=== PATIENT | female | born 1965 | race Caucasian/White ===

== ENCOUNTER 2017-09-21 17:40 | Inpatient (IN) | payer SELFPAY ==
[~2017-09-21] VITALS: Ht 162.6 cm; Wt 86.6 kg
[~2017-09-21 17:40] MED LIST: ATIVAN1 M1 PO; CEPHALEXIN500 MG PO; LOPRESSOR 550 MG/TAB PO; NAPROSYN500 MG OR; TYLENOL # 31 TA1 PO
--- NOTE | 2017-09-21 17:48 | NUR ---
PT TO ROOM FOR EXAM
[2017-09-21 18:41] LABS: HEMATOCRIT 43.3 % (37.0-47.0); HEMOGLOBIN 14.5 g/dl (12.0-16.0); IMMATURE GRANULOCYTES 0.9 % (0.0-1.0); MEAN CELL VOLUME 98.2 fL CALC (80.0-100.0); MEAN CORPUSCULAR HGB 32.9 pG CALC (26.0-32.0); MEAN CORPUSCULAR HGB CONC 33.5 g/L CALC (32.0-36.0); NEUT# 24.1 thou/uL (2.00-7.15); RED BLOOD COUNT 4.41 mill/uL (4.20-5.60); RED CELL DISTRI WIDTH 11.7 % (11.5-15.5)
[2017-09-21 18:48] LABS: ALBUMIN 4.4 g/dL (3.2-5.0); ALKALINE PHOSPHATASE 94 u/l (38-126); AMYLASE 41 u/l (30-110); ANION GAP 14 (6-22 (CALC)); BILIRUBIN, TOTAL 1.1 mg/dL (0.0-1.4); BUN 11 mg/dL (7-17); BUN/CREATININE RATIO 22 (12-20 (CALC)); CARBON DIOXIDE 25 mmol/l (22-30); CHLORIDE 102 mmol/l (95-108); CREATININE 0.5 mg/dL (0.5-1.0); GFR > 60 ML/MIN (>=60 (CALC)); GFR FOR AFR.AMER. > 60 ML/MIN (>=60 (CALC)); LIPASE 48 u/l (23-300); POTASSIUM 3.5 mmol/l (3.5-5.1); SGOT/AST 37 u/l (14-36); SGPT/ALT 31 u/l (9-52); SODIUM 139 mmol/l (137-146); TOTAL PROTEIN 7.3 g/dL (6.3-8.2)
--- NOTE | 2017-09-21 18:51 | NUR ---
PT PROVIDED MEDS ORDERED, APPEARS UNCOMFORTABLE WITH ABDOMINAL DISCOMFORT.
[2017-09-21 19:32] LABS: MYOGLOBIN 14 ng/mL (0 - 62)
--- NOTE | 2017-09-21 20:07 | NUR ---
RESTING QUIETLY, AWAITING LAB RESULTS.
[2017-09-21 20:14] LABS: URINE BILIRUBIN - DIPSTICK NEGATIVE (NEGATIVE); URINE BLOOD DIPSTICK NEGATIVE (NEGATIVE); URINE COLOR YELLOW; URINE GLUCOSE - DIPSTICK NEGATIVE (NEGATIVE); URINE KETONE NEGATIVE (NEGATIVE); URINE LEUK ESTERASE NEGATIVE (NEGATIVE); URINE NITRITE - DIPSTICK NEGATIVE (Negative); URINE PROTEIN - DIPSTICK NEGATIVE (NEG-TRACE); URINE UROBILINOGEN - DIPSTICK 0.2 E.U./dL (0.2)
[2017-09-21 20:16] LABS: URINE CLARITY CLEAR
--- NOTE | 2017-09-21 20:41 | NUR ---
DISCUSSED ANTIBIOTIC THERAPY INITIATED.
--- NOTE | 2017-09-21 22:03 | NUR ---
AWAITING ROOM ASSIGNMENT.
--- NOTE | 2017-09-21 22:11 | NUR ---
Admission Note Report Given to: BONNY MERAZ Transported by: Wheelchair X Stretcher Transported with: X Nurse Transporter X Patent IV O2 Byproduct Engineer
[2017-09-21 22:40] VITALS: BP 171/93
--- NOTE | 2017-09-21 23:30 | NUR ---
PATIENT ADMITTED FROM ER VIA STRETCHER WITH ER STAFF IN ATTENDANCE. PATIENT ASSISTED OFF THE STRETCHER TO THE BR TO VOID-ASSISTED TO THE BED. PATIENT ALERT AND ORIENTEDX3. PATIENT C/O LOWER ABD PAIN-WAS MEDICATED IN ER FOR PAIN. PATIENT WITH TEMP-101.7-MEDICATED WITH TYLENOL 650 MG AND RESTORIL 15MG PO WITH SIP OF H2O. PATIENT IS NPO ORDERED. IV SITE TO RIGHT AC-SITE APPEARS HEALTHY WITH GOOD BLOOD RETURN. IVF NS HUNG AND INFUSING AT 125CC/HR. ABD IS DISTENDED-STATES LAST BM WAS TODAY. DENIES DIFFICULTY WITH VOIDING. LUNGS ARE CLEAR. NO PERIPHERAL EDEMA NOTED. ORIENTED PATIENT TO ROOM AND SURROUNDINGS. INSRUCTED PATIENT ON USE OF NURSE CALL LIGHT SYSTEM AND TV REMOTE. SAFETY PRECAUTIONS REVIEWED WITH PATIENT AND PATIENT DAUGHTER. CALL LIGHT IN REACH. WILL CONT TO MONITOR.
[2017-09-22] VITALS (7 sets, daily range): BP systolic 144–164; BP diastolic 62–87
--- NOTE | 2017-09-22 01:00 | NUR ---
PATIENT UP TO THE BR TO VOID AND BACK TO BED. TEMP 100.1 AT THIS TIME. CALL LIGHT IN REACH. WILL CONT TO MONITOR.
--- NOTE | 2017-09-22 02:06 | NUR ---
PATIENT BACK UP TO THE BR TO VOID-TEMP IS 00.1 AT THIS TIME. CALL LIGHT IN REACH. WILL CONT TO MONITOR.
--- NOTE | 2017-09-22 04:55 | NUR ---
PATIENT MEDICATED FOR C/O ABD/[PELVIC PAIN WITH MORPHINE 4MG IVP ORDERED FOR PAIN-9/10 ON PAIN SCALE. CALL LIGHT IN REACH. WILL CONT TO MONITOR.
--- NOTE | 2017-09-22 06:19 | NUR ---
APPEARS SLEEPING POSITIONED ON LEFT SIDE AT THIS TIME. VIF PATENT AND INFUSING AT 125CC/HR. VOIDING GIANA URINE IN BR. CALL LIGHT IN REACH. WILL CONT TO MONITOR.
--- NOTE | 2017-09-22 07:00 | NUR ---
SHIFT CHANGE REPORT FROM LINDA MERAZ AWAKE RESTING IN BED, C/O ABD PAIN, IVF INFUSING. PAIN CONCERNS ADDRESSED, CALL BERKOWITZ IN REACH.
--- NOTE | 2017-09-22 07:20 | NUR ---
RECIEVED REPORT FROM MARIYA DRAPER. PT. IS LAYING IN BED, EASILY AROUSED. PT COMPLAINS OF PAIN IN HER ABDOMEN, 10/10, STABBING. NURSE NOTIFIED. PT WAS MEDICATED PER ORDER FOR FEVER BY Ramon OLIVO RN. SAFETY PRECAUTIONS REINFORCED, CALL LIGHT WITHIN REACH. WILL CONTINUE TO MONITOR.
--- NOTE | 2017-09-22 07:21 | NUR ---
ADMINISTERED PO TYLENOL WITH SMALL SIP OF WATER FOR TEMP 101.4. BLANKETS REMOVED AND PT AWARE OF FEVER.
--- NOTE | 2017-09-22 07:50 | NUR ---
PATIENT IS SITTING UP IN BED AWAKE. PATIENT IS ALERT AND ORIENTED X3. PUPILS ARE BRISK, 3MM. PERRLA. FACE IS SYMMETRIC. LUNGS ARE CLEAR BILATERALLY. ABDOMEN IS DISTENDED AND FIRM. ACTIVE BOWEL SOUNDS IN ALL FOUR QUADRANTS. PT COMPLAINS OF PAIN IN HER RLQ AND LLQ. LOWER QUADRANTS ARE TENDER TO TOUCH. PT STATES PAIN IS A 10/10 PAIN THAT IS A STABBING PAIN THAT COMES AND GOES. PT STATES THAT SHE HAS NO NAUSEA OR VOMITTING. PULSES ARE STRONG THROUGHOUT. CAP REFILL <3. NO PERIPHERAL EDEMA NOTED. PT IS NPO, PT VERBALIZES UNDERSTANDING THAT SHE CANT HAVE ANYTHING TO EAT OR DRINK. CALL LIGHT WITHIN REACH. WILL CONTINUE TO MONITOR.
[2017-09-22 07:55] LABS: ANION GAP 14 (6-22 (CALC)); BUN 11 mg/dL (7-17); BUN/CREATININE RATIO 22 (12-20 (CALC)); CARBON DIOXIDE 22 mmol/l (22-30); CHLORIDE 109 mmol/l (95-108); CREATININE 0.5 mg/dL (0.5-1.0); GFR > 60 ML/MIN (>=60 (CALC)); GFR FOR AFR.AMER. > 60 ML/MIN (>=60 (CALC)); HEMATOCRIT 40.6 % (37.0-47.0); HEMOGLOBIN 13.5 g/dl (12.0-16.0); MEAN CELL VOLUME 100.7 fL CALC (80.0-100.0); MEAN CORPUSCULAR HGB 33.5 pG CALC (26.0-32.0); MEAN CORPUSCULAR HGB CONC 33.3 g/L CALC (32.0-36.0); POTASSIUM 4.1 mmol/l (3.5-5.1); RED BLOOD COUNT 4.03 mill/uL (4.20-5.60); SODIUM 141 mmol/l (137-146)
--- NOTE | 2017-09-22 12:15 | NUR ---
ATE FULL LIQUID MEAL AND TOLERATED, WILL CONTINUE TO MONITOR.
--- NOTE | 2017-09-22 16:39 | NUR ---
SITTING UP IN CHAIR AT THIS TIME, TEMP BACK WITHIN NORMAL RANGE AFTER TYLENOL GIVEN, ALL OTHER NEEDS ADDRESSED, CALL BERKOWITZ IN REACH.
--- NOTE | 2017-09-22 19:00 | NUR ---
RECEIVED CHANGE OF SHIFT REPORT FROM BONNY MCMANUS. PATIENT UP AT BEDSIDE, NO APPARENT ACUTE DISTRESS OR DISCOMFORT NOTED AT THIS TIME. WILL CONTUNE TO MONITOR.
--- NOTE | 2017-09-23 00:02 | NUR ---
PATIENT'S AWAKE AND LYING IN BED. REPORTS UNRELIEVED PAIN TO ABDOMEN. MEDICATED WITH MORPHINE 4 MG IV PUSH. WILL CONTINUE TO MONITOR,
[2017-09-23 04:00] VITALS: BP 160/75
--- NOTE | 2017-09-23 04:00 | NUR ---
PATIENT RESTING QUIETLY AT THIS TIME. NO APPARENT ACUTE CHANGES NOTED IN PATIENT'S CONDITION.
[2017-09-23 06:09] LABS: HEMATOCRIT 37.9 % (37.0-47.0); HEMOGLOBIN 12.4 g/dl (12.0-16.0); MEAN CELL VOLUME 101.1 fL CALC (80.0-100.0); MEAN CORPUSCULAR HGB 33.1 pG CALC (26.0-32.0); MEAN CORPUSCULAR HGB CONC 32.7 g/L CALC (32.0-36.0); RED BLOOD COUNT 3.75 mill/uL (4.20-5.60); RED CELL DISTRI WIDTH 11.9 % (11.5-15.5)
[2017-09-23 06:12] LABS: ANION GAP 15 (6-22 (CALC)); BUN 7 mg/dL (7-17); BUN/CREATININE RATIO 14 (12-20 (CALC)); CARBON DIOXIDE 23 mmol/l (22-30); CHLORIDE 106 mmol/l (95-108); CREATININE 0.5 mg/dL (0.5-1.0); GFR > 60 ML/MIN (>=60 (CALC)); GFR FOR AFR.AMER. > 60 ML/MIN (>=60 (CALC)); MAGNESIUM 1.8 mg/dL (1.6-2.3); POTASSIUM 3.2 mmol/l (3.5-5.1); SODIUM 141 mmol/l (137-146)
--- NOTE | 2017-09-23 07:24 | NUR ---
SHFIT CHANGE REPORT FROM LAYLA, PT SLEEPING, BREATHING EVEN AND NON LABBORED, IVF INFUSING, NO SIGN DISCOMFORT, CALL BERKOWITZ IN REACH.
--- NOTE | 2017-09-23 07:48 | NUR ---
AWAKENED FOR MEAL, ORIENTED, C/O ABD PAIN, WILL CONTINUE TO MONITOR.
[2017-09-23 08:21] VITALS: BP 168/91
[2017-09-23 12:07] VITALS: BP 172/87
[2017-09-23 15:51] VITALS: BP 166/81
--- NOTE | 2017-09-23 16:31 | NUR ---
RESTING IN BED AT THIS TIME, ALL NEEDS ADDRESSED, SPOUSE VISITING, CALL BERKOWITZ IN REACH.
--- NOTE | 2017-09-23 19:00 | NUR ---
RECEIVED CHANGE OF SHIFT REPORT FROM BONNY MCMANUS. PATIENT LYING IN BED AND APPEARS NOT TO BE IN ANY APPARENT ACUTE DISTRESS AT THIS TIME. WILL CONTINUE TO MONITOR.
[2017-09-23 19:15] VITALS: BP 159/98
--- NOTE | 2017-09-24 | NUR ---
PATIENT RESTING IN BED QUIETLY AND APPEARS NOT TO BE IN ANY APPARENT ACUTE DISTRESS. RESP EVEN AND NONLABORED. WILL CONTINUE TO MONITOR.
--- NOTE | 2017-09-24 04:00 | NUR ---
PATIENT LYING IN BED ASLEEP. NO APPATENT ACUTE CHANGES NOTED IN PATIENT'S CONDITION,
[2017-09-24 04:31] VITALS: BP 143/89
[2017-09-24 05:52] LABS: HEMATOCRIT 36.8 % (37.0-47.0); MEAN CELL VOLUME 101.4 fL CALC (80.0-100.0); MEAN CORPUSCULAR HGB 33.1 pG CALC (26.0-32.0); MEAN CORPUSCULAR HGB CONC 32.6 g/L CALC (32.0-36.0); RED BLOOD COUNT 3.63 mill/uL (4.20-5.60); RED CELL DISTRI WIDTH 11.8 % (11.5-15.5)
[2017-09-24 06:07] LABS: ANION GAP 13 (6-22 (CALC)); BUN 4 mg/dL (7-17); BUN/CREATININE RATIO 8 (12-20 (CALC)); CARBON DIOXIDE 26 mmol/l (22-30); CHLORIDE 105 mmol/l (95-108); CREATININE 0.5 mg/dL (0.5-1.0); GFR > 60 ML/MIN (>=60 (CALC)); GFR FOR AFR.AMER. > 60 ML/MIN (>=60 (CALC)); MAGNESIUM 1.7 mg/dL (1.6-2.3); POTASSIUM 3.4 mmol/l (3.5-5.1); SODIUM 141 mmol/l (137-146)
--- NOTE | 2017-09-24 07:00 | NUR ---
RECEIVED BEDSIDE REPORT FROM LAYLA DRAPER. RESTING IN SUPINE POSITION WITH EYES CLOSED, AWAKENS EASILY. RESPS EVEN AND UNLABORED ON ROOM AIR. #22 LFA INFUSING WITHOUT DIFFICULTY, SITE APPEARS HEALTHY. DENIES PAIN OR DISCOMFORT. PLAN OF CARE DISCUSSED. SAFETY PRECAUTIONS REINFORCED. BED IN LOWEST POSITION WITH WHEELS LOCKED. CALL LIGHT WITHIN REACH. ENCOURAGED PT TO CALL FOR ANY NEEDS.
[2017-09-24 08:14] VITALS: BP 175/86
--- NOTE | 2017-09-24 12:00 | NUR ---
SITTING IN BEDSIDE CHAIR EATING LUNCH. DENIES PAIN OR DISCOMFORT. CALL LIGHT WITHIN REACH. WILL CONTINUE TO MONITOR.
--- NOTE | 2017-09-24 14:30 | NUR ---
SITTING IN BEDSIDE CHAIR, AT BEDSIDE. RESPS EVEN AND UNLABORED ON ROOM AIR. #22 RFA INFUSING WITHOUT DIFFICULTY, SITE APPEARS HEALTHY. MEDICATED WITH LORTAB PO FOR C/O 5/10 ABD PAIN. CALL LIGHT WITHIN REACH. WILL CONTINUE TO MONITOR.
[2017-09-24] MEDS ORDERED: CIPROFLOXACN500 MG PO (15:16)
[2017-09-24] MEDS ORDERED: METRONIDAZOL500 MG PO (15:16)
[2017-09-24] MEDS ORDERED: TRAMADOL HCL50 MG PO (15:16)
[2017-09-24] MEDS ORDERED: AMLODIPINE BESYL5 MG PO (15:20)
[2017-09-24] MEDS ORDERED: LORTAB 5/3255 MG PO (15:35)
--- NOTE | 2017-09-24 16:00 | NUR ---
IV site discontinued, cath intact. No edema , no redness, voices no discomfort.
--- NOTE | 2017-09-24 16:10 | NUR ---
Discharge instructions given. Patient verbalizes understanding of same. Discharged in stable condition via Wheelchair to Home with spouse. All belongings sent with pt.
== END 2017-09-24 16:07 | disposition home or self-care (01) | DRG 872 ==
LOC: ED 17:40 → ED-I 21:20 → ED 21:47 → MS2 21:48
PROVIDERS: Emergency Medicine; Internal Medicine; Nurse Practitioner Family; ADMIT Internal Medicine; ATTEND Internal Medicine
DX: A41.9 Sepsis, unspecified organism (principal); K57.32 Diverticulitis of large intestine without perforation or abscess without bleeding; I16.0 Hypertensive urgency; I10 Essential (primary) hypertension; E86.0 Dehydration; E87.6 Hypokalemia; F17.210 Nicotine dependence, cigarettes, uncomplicated; Z72.89 Other problems related to lifestyle; Z91.19 Patient's noncompliance with other medical treatment and regimen
CPT/HCPCS: Q9967

== ENCOUNTER 2019-05-30 14:26 | Emergency (ER) | payer SELFPAY ==
[~2019-05-30] VITALS: Ht 162.6 cm; Wt 87.2 kg
[~2019-05-30 14:26] MED LIST changes: +AMLODIPINE BESYL5 MG PO; +CIPROFLOXACN500 MG PO; +LORTAB 5/3255 MG PO; +METRONIDAZOL500 MG PO; +TRAMADOL HCL50 MG PO
[2019-05-30 16:46] LABS: IMMATURE GRANULOCYTES 0.5 % (0.0-5.0); MEAN CELL VOLUME 97.5 fL CALC (80.0-100.0); MEAN CORPUSCULAR HGB 31.5 pG CALC (26.0-32.0); MEAN CORPUSCULAR HGB CONC 32.4 g/L CALC (32.0-36.0); NEUT# 6.93 thou/uL (2.00-7.15); RED BLOOD COUNT 5.96 mill/uL (4.20-5.60); RED CELL DISTRI WIDTH 13.7 % (11.5-15.5)
[2019-05-30 16:52] LABS: URINE BLOOD DIPSTICK MODERATE (NEGATIVE); URINE GLUCOSE - DIPSTICK NEGATIVE (NEGATIVE); URINE KETONE NEGATIVE (NEGATIVE); URINE LEUK ESTERASE NEGATIVE (NEGATIVE); URINE NITRITE - DIPSTICK NEGATIVE (Negative); URINE PROTEIN - DIPSTICK >=300 mg/dL (NEG-TRACE); URINE SPECIFIC GRAVITY >=1.030
[2019-05-30 16:54] LABS: URINE BILIRUBIN - DIPSTICK NEGATIVE (NEGATIVE); URINE COLOR DK. YELLOW
[2019-05-30 16:59] LABS: INTERNATIONAL NORMALIZED RATIO 1.1 RATIO (0.7-1.3); PROTHROMBIN TIME 11.3 SECONDS (9.0-12.5)
[2019-05-30 17:05] LABS: URINE SQUAMOUS EPITHELIAL CELL FEW EPI/hpf (0-FEW)
[2019-05-30 17:07] LABS: HEMATOCRIT 58.1 % (37.0-47.0); HEMOGLOBIN 18.8 g/dl (12.0-16.0)
[2019-05-30 17:12] LABS: ALBUMIN 3.7 g/dL (3.2-5.0); ALKALINE PHOSPHATASE 125 u/l (38-126); ANION GAP 12 (6-22 (CALC)); BILIRUBIN, TOTAL 1.6 mg/dL (0.0-1.4); BUN 12 mg/dL (7-17); BUN/CREATININE RATIO 24 (12-20 (CALC)); CARBON DIOXIDE 31 mmol/l (22-30); CHLORIDE 100 mmol/l (95-108); CPK 31 u/l (30-165); CREATININE 0.5 mg/dL (0.5-1.0); ETHYL ALCOHOL 0 mg/dl (0-30); GFR > 60 ML/MIN (>=60 (CALC)); GFR FOR AFR.AMER. > 60 ML/MIN (>=60 (CALC)); MAGNESIUM 1.6 mg/dL (1.6-2.3); POTASSIUM 4.7 mmol/l (3.5-5.1); SGOT/AST 37 u/l (14-36); SODIUM 138 mmol/l (137-146); TOTAL PROTEIN 7.1 g/dL (6.3-8.2)
[2019-05-30 17:34] LABS: TSH, 3RD GENERATION 3.03 uIU/mL (0.47 - 4.68)
[2019-05-30] MEDS ORDERED: MAXZIDE-25MG1 COMBO PO (19:12)
[2019-05-30 19:44] VITALS: BP 160/99
== END 2019-05-30 19:50 | disposition home or self-care (01) | DRG 434 ==
LOC: ED 14:26
PROVIDERS: Family Medicine
DX: K70.9 Alcoholic liver disease, unspecified (principal); R60.0 Localized edema; E11.9 Type 2 diabetes mellitus without complications; I10 Essential (primary) hypertension; F17.290 Nicotine dependence, other tobacco product, uncomplicated
CPT/HCPCS: Q9967

== ENCOUNTER 2019-10-13 | Inpatient (IN) | payer SELFPAY ==
--- NOTE | 2019-10-12 15:45 | NUR ---
PT RETURNED TO WAITING ROOM VIA WC- AWAITING FOR ROOM AVAILIABILITY
--- NOTE | 2019-10-12 16:58 | NUR ---
PT BROUGHT BACK TO ROOM VIA WC
--- NOTE | 2019-10-12 17:45 | NUR ---
PATIENT REPORTS PAIN TO IV SITE TO LAC REQUESTING TO BE CHANGED TO RAC. #18 TO RAC ESTABLISHED BLOOD WORK COLLECTED.
[2019-10-12 17:57] LABS: HEMATOCRIT 37.2 % (37.0-47.0); HEMOGLOBIN 12.6 g/dl (12.0-16.0); IMMATURE GRANULOCYTES 1.1 % (0.0-5.0); MEAN CELL VOLUME 92.1 fL CALC (80.0-100.0); MEAN CORPUSCULAR HGB 31.2 pG CALC (26.0-32.0); MEAN CORPUSCULAR HGB CONC 33.9 g/L CALC (32.0-36.0); NEUT# 18.19 thou/uL (2.00-7.15); RED BLOOD COUNT 4.04 mill/uL (4.20-5.60); RED CELL DISTRI WIDTH 14.1 % (11.5-15.5)
[2019-10-12 18:03] LABS: URINE BILIRUBIN - DIPSTICK NEGATIVE (NEGATIVE); URINE BLOOD DIPSTICK TRACE-INTACT (NEGATIVE); URINE COLOR YELLOW; URINE GLUCOSE - DIPSTICK NEGATIVE (NEGATIVE); URINE KETONE NEGATIVE (NEGATIVE); URINE LEUK ESTERASE NEGATIVE (NEGATIVE); URINE NITRITE - DIPSTICK NEGATIVE (Negative); URINE PROTEIN - DIPSTICK TRACE mg/dL (NEG-TRACE); URINE UROBILINOGEN - DIPSTICK 0.2 E.U./dL (0.2)
[2019-10-12 18:12] LABS: BILIRUBIN, TOTAL 1.5 mg/dL (0.0-1.4); BUN 41 mg/dL (7-17); BUN/CREATININE RATIO 50 (12-20 (CALC)); CARBON DIOXIDE 30 mmol/l (22-30); CHLORIDE 93 mmol/l (95-108); CREATININE 0.8 mg/dL (0.5-1.0); GFR > 60 ML/MIN (>=60 (CALC)); GFR FOR AFR.AMER. > 60 ML/MIN (>=60 (CALC)); LIPASE 49 u/l (23-300); SGOT/AST 40 u/l (14-36); SODIUM 134 mmol/l (137-146)
[2019-10-12 18:14] LABS: ALBUMIN 2.8 g/dL (3.2-5.0); ALKALINE PHOSPHATASE 265 u/l (38-126); AMYLASE < 30 u/l (30-110); ANION GAP 14 (6-22 (CALC)); POTASSIUM 2.9 mmol/l (3.5-5.1)
--- NOTE | 2019-10-12 18:35 | NUR ---
PATIENT MEDICATED PER MD ORDER. REPORTS PAIN 03/18 AT THIS TIME. BUYER INTERNSHIP AT BEDSIDE TO TRANSPORT PATIENT TO CT.
--- NOTE | 2019-10-12 19:00 | NUR ---
REPORT GIVEN TO BONNY RENNER. PATIENT CONTINUES IN CT SCAN.
--- NOTE | 2019-10-12 19:12 | NUR ---
RETURNED FROM RADIOLOGY VIA STRETCHER
--- NOTE | 2019-10-12 19:37 | NUR ---
PT UP TO BR VIA W/C.
--- NOTE | 2019-10-12 20:24 | NUR ---
C/O BEING COLD. IVF CONTINUED. VSS. PT GIVEN ANOTHER BLANKET. DOESN'T WANT TO LAY IN BED. SITTING UP IN ROLLING CHAIR. ADVISED OF WAIT
--- NOTE | 2019-10-12 21:56 | NUR ---
AT BEDSIDE TO DISCUSS RESULTS
--- NOTE | 2019-10-12 22:06 | NUR ---
DR NOTIFIED OF LACTIC ACID OF 2.1
--- NOTE | 2019-10-12 22:50 | NUR ---
PT UP TO BR VIA W/C. UPON RETURNING TO ROOM, PT C/O DIZZINESS AND INCREASED ABD PAIN. NOTIFIED.
--- NOTE | 2019-10-12 23:18 | NUR ---
PT GIVEN MORPHINE AND PLACED ON NC @ 2 LPM PT WAS SATING AT 90 % PRIOR TO GETTING MORPHINE. PT DOESN'T LIKE IT IN HER NOSE SO o2 INFUSING INTO MOUTH.
--- NOTE | 2019-10-12 23:20 | NUR ---
WHILE GIVING MORPHINE....PT STATES THAT SHE WAS HAVING CHEST PAIN. 12/16. DENIES HEART HX. MOTHER HAD A WEAK HEART.
--- NOTE | 2019-10-12 23:26 | NUR ---
EKG IN PROGRESS. AT BEDSIDE TO DISCUSS CHEST PAIN. MP ESPARZA.
--- NOTE | 2019-10-12 23:31 | NUR ---
LAB AT BEDSIDE TO DRAW REPEAT LACTIC AND A TROPONIN.
--- NOTE | 2019-10-12 23:50 | NUR ---
ADVISED DR. BOURNE THAT PT HAS A BP OF 109/54...PRIOR TO NITRO PASTE. STATES TO GIVE A FLUID BOLUS AND THEN GIVE NITRO. JORDIN PABON.
[2019-10-13] VITALS (8 sets, daily range): BP systolic 88–152; BP diastolic 42–58
[~2019-10-13] MED LIST changes: +MAXZIDE-25MG1 COMBO PO
--- NOTE | 2019-10-13 00:07 | NUR ---
PT STATES PAIN IS A 7/10.
--- NOTE | 2019-10-13 00:39 | NUR ---
REPORT TO BONNY BRENNER. PT WAS JUST UP TO BR TO VOID VIA W/C. TO FLOOR WITH FLUIDS INFUSING VIA W/C WITH JORDIN WHO WILL CARE FOR HER UPSTAIRS. REPORT GIVEN TO NURSE AT BEDSIDE.
--- NOTE | 2019-10-13 00:45 | NUR ---
PT TRANSFERED TO [facility] VIA WHEELCHAIR. PT ALERT AND ORIENTED. NO APPARENT DISTRESS NOTED. PT DENIES ANY PAIN OR DISCOMFORT AT THIS TIME. PT AMBULATED X1 ASSIST FROM WHEELCHAIR TO BED. PT ORIENTED TO ROOM AND CALL LIGHT SYSTEM. POC DISCUSSED. PT VERBALIZED UNDERSTANDING. HOME MEDS OBTAINED AND PLACE IN MED ROOM FOR PHARMACY TO ERECTOR OPERATOR. PT AWARE OF NPO STATUS. CALL LIGHT WITHIN REACH. WILL CONTINUE TO MONITOR.
--- NOTE | 2019-10-13 04:22 | NUR ---
ASSISTED PT TO BATHROOM. PT AMBULATED WITH STEADY GAIT. NO APPARENT DISTRESS NOTED. ASSISTED PT BACK TO BED. LINENS ADJUSTED UPON REQUEST. PT REMAINS NPO. CALL LIGHT WITHIN REACH. WILL CONTINUE TO MONITOR.
[2019-10-13 05:47] LABS: HEMATOCRIT 35.1 % (37.0-47.0); HEMOGLOBIN 11.6 g/dl (12.0-16.0); IMMATURE GRANULOCYTES 1.2 % (0.0-5.0); MEAN CELL VOLUME 95.6 fL CALC (80.0-100.0); MEAN CORPUSCULAR HGB 31.6 pG CALC (26.0-32.0); NEUT# 16.05 thou/uL (2.00-7.15); RED BLOOD COUNT 3.67 mill/uL (4.20-5.60); RED CELL DISTRI WIDTH 14.5 % (11.5-15.5)
--- NOTE | 2019-10-13 06:18 | NUR ---
PT C/O SHARP ABD PAIN 05/18. ER PHYSICIAN NOTIFIED AND INFORMED OF CURRENT BP 115/55. NITROPASTE HELD AND ORDERS RECEIEVED FOR MORPHINE 2MG IV X1 DOSE FOR PAIN. WILL MEDICATED WHEN PROFILED BY PHARMACY.
--- NOTE | 2019-10-13 07:30 | NUR ---
REPORT RECEIVED FROM SARAI BRENNER. PT SITTING UPRIGHT IN BED. DENIES PAIN. TENDERNESS TO LLQ ABDOMEN NOTED. PT REQUESTS SOMETHING TO DRINK. NPO STATUS REINFORCED. PLAN OF CARE AND SURGERY CONSULT REVIEWED. EXPIRATORY WHEEZING HEARD IN LEFT LUNG PUENTE. NO COUGH/SOB. PT REPORTS HX SMOKING CIGARS. REPORTING OF CONCERNS OR CHANGE IN CONDITION ENCOURAGED. CALL LIGHT REVIEWED AND IN REACH. PT STATES UNDERSTANDING.
--- NOTE | 2019-10-13 08:25 | NUR ---
CALLED IN CONSULTATION REGARDING THIS PT TO DR. EMERY OFFICE. SPOKE TO OANH GAVE HER INFORMATION REGARDING PT. STATED SHE WILL PASS ALONG THE MESSAGE TO DR. EMERY.
--- NOTE | 2019-10-13 09:23 | NUR ---
BP 88/42, HR 95. PT REPORTS DIZZINESS. ALERT AND ORIENTED, BUT INAPPROPRAITE AT TIMES. DR. LONG NOTIFIED. ORDERS GIVEN FOR STAT LACTIC ACID, NS 1 L IV BOLUS NOW, AND CONFIRM SURGERY CONSULT WAS CALLED. DR. EMERY NOTIFIED PER ELBERT HIGH. NS BOLUS STARTED AT THIS TIME. WILL CONTINUE TO MONITOR BP CLOSELY. FALL PRECAUTIONS REINFORCED WITH PT.
--- NOTE | 2019-10-13 10:26 | NUR ---
SIGNIFICANT OTHER AT BEDSIDE, REPORTS PT'S DEMEANOR IS NORMAL FOR HER. BP NOW 96/50, HR 91. NS BOLUS STILL INFUSING.
--- NOTE | 2019-10-13 12:00 | NUR ---
DR. EMERY IN TO SEE PT. ORDER FOR CLEAR LIQUID DIET GIVEN.
--- NOTE | 2019-10-13 13:00 | NUR ---
DR. LONG IN TO SEE PT. PLAN OF CARE UPDATED.
--- NOTE | 2019-10-13 15:40 | NUR ---
Reviewed medication list with patient. Counseled patient on importance of medication adherence. Questions and concerns patient had were addressed.
--- NOTE | 2019-10-13 18:00 | NUR ---
PT SCREMAING OUT IN PAIN. DILAUDID IV ADMINISTERED PER ORDER. BED ALARM SET FOR SAFETY.
--- NOTE | 2019-10-13 19:25 | NUR ---
ASSESSMENT COMPLETED. IV SITE PATENT AND ORDERED IVF INFUSING WELL. IS AT BEDSIDE. PT. IS DROWSY. BED ALARM IS ON FOR SAFETY. ENCOURAGED TO CALL FOR ANY NEEDS. CALL LIGHT IS IN REACH. WILL CONTINUE TO MONITOR.
--- NOTE | 2019-10-13 22:15 | NUR ---
PT. RESTING IN BED AND REQUESTS ICE CHIPS AND GIVEN AT THIS TIME. DENIES FURTHER NEEDS. BED ALARM ON.
--- NOTE | 2019-10-14 00:28 | NUR ---
PT. ASSSITED TO AND FROM THE BATHROOM AND VOIDED. BED ALARM RE-SET. PT. INTERMITTENTLY BENDING ARM AND IV SITE IN AC AND SOUNDING IV PUMP; THIS ARCHEOLOGY PROFESSOR OFFERED TO RESTART IV SITE AND PT. DECLINES. PT. REPORTS ABD PAIN 10/10 AND MEDICATED WITH ORDERED IV DILAUDID PER EMAR. WILL REASSESS. DENIES FURTHER NEEDS. PT. HAS BEEN TOLERATED LIQUIDS WELL WITH NO VOMITING. CALL LIGHT IS IN REACH.
--- NOTE | 2019-10-14 02:48 | NUR ---
RESTING IN BED ON LEFT SIDE WITH EYES CLOSED; RESP. EVEN AND UNLABORED. CALL LIGHT IS IN REACH.
--- NOTE | 2019-10-14 04:30 | NUR ---
PT. REPORTING IV SITE IS HURTING, NO REDNESS OR SWELLING NOTED TO SITE, REMOVED AT THIS TIME AND CATHETER INTACT. NEW IV STARTED TO RIGHT WRIST X1 ATTEMPT; PT. TOLERATED WELL AND IV DILAUDID ADMINISTERED FOR ABD PAIN; WILL REASSESS. ENCOURAGED TO CALL FOR ANY NEEDS. CALL LIGHT IS IN REACH.
[2019-10-14 04:54] VITALS: BP 154/57
--- NOTE | 2019-10-14 05:25 | NUR ---
PT. ASSISTED TO AND FROM BATHROOM. SCHED ANTIBIOTIC HUNG. ENCOURAGED TO CALL FOR ANY NEEDS.
[2019-10-14 05:59] LABS: HEMOGLOBIN 9.7 g/dl (12.0-16.0); MEAN CORPUSCULAR HGB CONC 33.3 g/L CALC (32.0-36.0); RED BLOOD COUNT 3.03 mill/uL (4.20-5.60); RED CELL DISTRI WIDTH 14.5 % (11.5-15.5)
[2019-10-14 06:06] LABS: HEMATOCRIT 29.1 % (37.0-47.0)
[2019-10-14 06:07] LABS: ALBUMIN 2.3 g/dL (3.2-5.0); ALKALINE PHOSPHATASE 188 u/l (38-126); ANION GAP 9 (6-22 (CALC)); BUN 15 mg/dL (7-17); BUN/CREATININE RATIO 25 (12-20 (CALC)); CARBON DIOXIDE 29 mmol/l (22-30); CHLORIDE 102 mmol/l (95-108); CREATININE 0.6 mg/dL (0.5-1.0); GFR > 60 ML/MIN (>=60 (CALC)); GFR FOR AFR.AMER. > 60 ML/MIN (>=60 (CALC)); MAGNESIUM 1.4 mg/dL (1.6-2.3); POTASSIUM 3.1 mmol/l (3.5-5.1); SGOT/AST 27 u/l (14-36); SODIUM 136 mmol/l (137-146); TOTAL PROTEIN 5.1 g/dL (6.3-8.2)
[2019-10-14 06:17] LABS: BILIRUBIN, TOTAL 2.4 mg/dL (0.0-1.4)
[2019-10-14 07:50] VITALS: BP 114/62
--- NOTE | 2019-10-14 07:50 | NUR ---
PT SITTING IN BED. A&O. NO DISTRESS NOTED. PT C/O OF MILD ABD PAIN. NO NEEDS AT THIS TIME. NON PRODUCTIVE COUGH NOTED. ASSESSMENT COMPLETED. CALL LIGHT IN REACH. CONTINUE TO MONITOR.
--- NOTE | 2019-10-14 08:01 | NUR ---
PRELIMINARY BLOOD CULTURE RESULTS CALLED TO AT 0745. 3/4 VIALS GROWING GRAM (+) COCCI. NEW ORDERS FOR [facility] TO DOSE READ BACK AND VERIFIED. PHARMACY TO FOLLOW FOR FINAL SENSITIVITIES.
[2019-10-14 11:00] VITALS: BP 119/52
--- NOTE | 2019-10-14 13:53 | NUR ---
S: ALFREDO BOWMAN is a 54 F who presents with BLOOD CULTURE GROWING GRAM (+) COCCI IN 3/4 VIALS. She has a history of Acute diverticulitis. All medications in patient's chart were reviewed. O: VS: BP 119/52, P 87, RR14,T 98.3 W 75kg>, HT 64 IN, Scr= 0.6,CrCl= >100 ml/min> A: Blood culture <is pending/show> which is sensitive to <>. Urine culture <is pending/show> which is sensitive to <>. P: Patient is on . Vancomycin ordered for pharmacy to dose.ZOSYN AND VANCOMYCIN Start Vancomycin 1250MG IV Q12H. Vancomycin trough is drawn before the 4th dose 10/15/19 @2000 Vancomycin goal trough is between <15-20 mcg/ml>. Pharmacy will follow and or advise on antibiotics use as needed.
[2019-10-14 15:10] VITALS: BP 116/57
--- NOTE | 2019-10-14 15:38 | NUR ---
PER ED PT EXHIBITED SIGNS OF VTACH ON TELEMETRY MONITORING. JACKY CRANBERRY GROWER NOTIFIED, PER JACKY EKG AND STAT TROPONIN TO BE OBTAINED.
[2019-10-14 19:20] VITALS: BP 125/53
--- NOTE | 2019-10-14 19:51 | NUR ---
ASSESSMENT COMPLETED. DENIES NEEDS/PAIN. UPDATED ON POC AND VERBALIZES UNDERSTANDING; AMBULATED WITH STBY ASST. TO THE BATHROOM AND BACK INTO BED. ENCOURAGED TO CALL FOR ANY NEEDS. CALL LIGHT IS IN REACH.
--- NOTE | 2019-10-14 23:49 | NUR ---
PT. C/O ABD PAIN 02/15 AND ASSISTED INTO BATHROOM AND BACK INTO BED. MEDICATED WITH ORDERED PRN LORTAB; WILL REASSESS.
[2019-10-15 00:23] VITALS: BP 136/60
--- NOTE | 2019-10-15 03:02 | NUR ---
RESTING IN BED ON LEFT SIDE WITH EYES CLOSED. RESP. EVEN AND UNLABORED. CALL LIGHT IS IN REACH.
[2019-10-15 04:37] VITALS: BP 126/55
--- NOTE | 2019-10-15 05:43 | NUR ---
PT. RESTING IN BED WITH NO DISTRESS NOTED; DENIES NEEDS. CALL LIGHT IS IN REACH.
[2019-10-15 07:24] VITALS: BP 104/61
--- NOTE | 2019-10-15 07:24 | NUR ---
PT LAYING IN BED. A&O. NO DISTRESS NOTED. PER PT LORTAB HAS BEEN EFFECTIVE IN CONTROLLING HER PAIN. PER PT SHE HAD A LARGE(NORMAL) BM THIS MORNING. NO OTHER NEEDS OR CONCERNS AT THIS TIME. ASSESSMENT COMPLETED. DISCUSSED POC. CALL LIGHT IN REACH. CONTINUE TO MONITOR.
[2019-10-15 12:08] VITALS: BP 131/64
--- NOTE | 2019-10-15 14:03 | NUR ---
ORAL IV CONTRAST DOSE #1 GIVEN. PT TOLERATED WELL
--- NOTE | 2019-10-15 17:08 | NUR ---
PT TAKEN TO CT VIA WC ACCOMPANIED BY TAZ BOSWELL.
--- NOTE | 2019-10-15 17:24 | NUR ---
PT ARRIVED BACK TO [place] VIA WC ACCOMPANIED BY TAZ BOSWELL.
--- NOTE | 2019-10-15 17:49 | NUR ---
EXPLAINED TO PT THAT AFTER MIDNIGHT SHE WAS TO BE NPO. PT VERBALIZED UNDERSTANDING
--- NOTE | 2019-10-15 19:12 | NUR ---
PT. SITTING UP IN BED AND EDUCATED ON POC AND PAIN MEDICATION FREQUENCIES AND PRN STATUS AND PT. NEEDING TO ASK FOR PAIN MEDICATION IF SHE NEEDS IT IT IS NOT SCHEDULED; VERBALIZES UNDERSTANDING. REPORTING ABD PAIN 10/10 AND MEDICATED WITH ORDERED PRN LORTAB, WILL REASSESS. ENCOURAGED AMBULATION TO ASSIST WITH GAS. CALL LIGHT IS IN REACH. WILL CONTINUE TO MONITOR.
[2019-10-15 19:33] VITALS: BP 156/67
--- NOTE | 2019-10-15 23:35 | NUR ---
PT. SITTING UP TALKING TO ON THE PHONE, NO DISTRESS NOTED; DENIES NEEDS. BROTH PROVIDED PT. WILL BE NPO AFTER MIDNIGHT AND RE-EDUCATED ABOUT THIS; VERBALIZES UNDERSTANDING.
[2019-10-16] VITALS (8 sets, daily range): BP systolic 119–168; BP diastolic 58–86
--- NOTE | 2019-10-16 01:05 | NUR ---
PT. C/O ABD PAIN 03/18 AND MEDICATED WITH ORDERED LORTAB WITH A SIP OF WATER; WILL REASSESS.
--- NOTE | 2019-10-16 04:06 | NUR ---
RESTING IN BED WITH NO DISTRESS NOTED;DENIES NEEDS. CALL LIGHT IS IN REACH.
[2019-10-16 05:12] LABS: HEMATOCRIT 31.7 % (37.0-47.0); HEMOGLOBIN 9.9 g/dl (12.0-16.0); MEAN CELL VOLUME 101.3 fL CALC (80.0-100.0); MEAN CORPUSCULAR HGB 31.6 pG CALC (26.0-32.0); MEAN CORPUSCULAR HGB CONC 31.2 g/L CALC (32.0-36.0); NEUT# 14.43 thou/uL (2.00-7.15); RED BLOOD COUNT 3.13 mill/uL (4.20-5.60); RED CELL DISTRI WIDTH 14.4 % (11.5-15.5)
[2019-10-16 05:33] LABS: ANION GAP 7 (6-22 (CALC)); BUN 3 mg/dL (7-17); BUN/CREATININE RATIO 8 (12-20 (CALC)); CARBON DIOXIDE 28 mmol/l (22-30); CHLORIDE 104 mmol/l (95-108); CREATININE 0.5 mg/dL (0.5-1.0); GFR > 60 ML/MIN (>=60 (CALC)); GFR FOR AFR.AMER. > 60 ML/MIN (>=60 (CALC)); MAGNESIUM 1.4 mg/dL (1.6-2.3); POTASSIUM 4.1 mmol/l (3.5-5.1); SODIUM 135 mmol/l (137-146)
--- NOTE | 2019-10-16 07:20 | NUR ---
REPORT RECEIVED FROM BONNY AGARWAL. PT SITTING UP IN BED WATCHING TV; ALERT AND ORIENTED. USED CALL LIGHT TO REQUEST PAIN MEDICATION FOR "06/18 ABDOMINAL PAIN AND SORE THROAT." PT ALSO LAUGHING AND JOKING WITH STAFF. RESPIRATIONS EVEN AND UNLABORED ON ROOM AIR. PLAN OF CARE REVIEWED INCLUDING NPO DIET. PT ENCOURAGED TO VERALIZE CONCERNS. STATES UNDERSTANDING. SAFETY MEASURES IN PLACE. CALL LIGHT WITHIN REACH.
--- NOTE | 2019-10-16 07:25 | NUR ---
LORTAB GIVEN FOR C/O 05/18 ABDOMINAL PAIN.
--- NOTE | 2019-10-16 07:30 | NUR ---
EVENT AV OPERATOR TECH NOTIFIED NURSE OF 6 BEAT RUN V TACH; PT ASYMPTOMATIC AND REPOSITIONING SELF IN BED C/O SOME BACK PAIN. CURRENTLY SR WITH PVCS. PT HAS NO C/O CHEST PAIN, DISCOMFORT, ETC. WILL CONTINUE TO MONITOR.
--- NOTE | 2019-10-16 08:41 | NUR ---
STREP SWAB OBTAINED DUE TO SORE THROAT AND SENT TO LAB.
--- NOTE | 2019-10-16 08:55 | NUR ---
DR. EMERY AT BEDSIDE TO DISCUSS PLAN OF CARE AND SURGERY TOMORROW.
--- NOTE | 2019-10-16 09:51 | NUR ---
NOW OF FULL LIQUID DIET; SNACKS AND WATER PROVIDED. DILAUDID ALSO GIVEN FOR 04/18 FOR ABDOMINAL PAIN.
--- NOTE | 2019-10-16 11:51 | NUR ---
ANESTHESIA AT BEDSIDE. MAGNESIUM INFUSING AT THIS TIME.
--- NOTE | 2019-10-16 14:06 | NUR ---
S: ALFREDO BOWMAN is a 54 F who presents with BLOOD CULTURE GROWING GRAM (+) COCCI IN 11/10. She has a history of acute diverticulitis. All medications in patient's chart were reviewed. O: VS: BP:135/58 mmHg, P:77bpm, RR:18 breaths/min ,T:97.2 W: 75.211kg, HT: 64inch, Scr= 0.5mg/dL,CrCl= 149.17ml/min A: Blood culture is showing streptococcus constellatus which is sensitive to vanco. P: Vancomycin ordered for pharmacy to dose. Trough drawn 10/15/2019 is 12 ug/mL. Start Vancomycin 1500mg IV Q12H. Vancomycin trough is drawn before the 4th dose on 10-17-2019/at 1930. Vancomycin goal trough is between <15-20 mcg/ml>. Pharmacy will follow and or advise on antibiotics use as needed.
--- NOTE | 2019-10-16 17:22 | NUR ---
PT STARTED NULYTELY. FRIEND AT BEDSIDE. DILAUDID GIVEN FOR ABDOMINAL PAIN. PT HAS CONCERNS ABOUT SURGERY AND ASKING QUESTIONS ABOUT ADVANCE DIRECTIVES, POA, ETC.
--- NOTE | 2019-10-16 17:55 | NUR ---
DECLINING IV FLUIDS AT THIS TIME BECAUSE SHE FEELS SO FULL DRINKING THE NULYTELY. STATES THAT SHE WILL ALLOW THE FLUIDS TO BE RESTARTED TONIGHT WHEN HER DIET CHANGES TO NPO.
--- NOTE | 2019-10-16 19:10 | NUR ---
PT. SITTING UP IN BED WATCHING TV AND DRINKING NULYTLELY; TOLERATING WELL. PT. DECLINES IVF AT PRESCRIBED RATE AND WILL ALLOW THEM TO GO @KVO AT THS TIME; PT. CONTINUES WITH QUESTIONS IN REGARDS TO CONSENT AND WILL WAIT TO SIGN HER CONSENT FOR SURGERY TOMORROW. AWARE OF NPO STATUS AFTER MIDNIGHT. ENCOURAGED TO CALL FOR ANY NEEDS. CALL LIGHT IS IN REACH.
--- NOTE | 2019-10-16 20:10 | NUR ---
ATTEMPTED TO GIVE EDUCATION ON I/S AND SCD'S FOR POST OP, AND PT. DECLINES EDUCATION AT THIS TIME.
--- NOTE | 2019-10-16 22:44 | NUR ---
PT. MEDICATED WITH ORDERED PRN DILAUID FOR ABD PAIN AND THEN BEGAN TO VOMIT SMALL AMOUNT INTO TRASHCAN, THEN MEDICATED WITH ORDERED ZOFRAN; WILL REASSESS.
--- NOTE | 2019-10-16 23:30 | NUR ---
PT. ALLOWED THIS DOOR CLOSER TO RESTART IVF @100MLS/HR THAT SHE WILL BE NPO AFTER MIDNIGHT. PT. DID COMPLETE DRINKING NULYTELY AND BM'S ARE CLEAR YELLOW LIQUID AT THIS TIME. ENCOURAGED TO CALL FOR ANY NEEDS. CALL LIGHT IS IN REACH.
[2019-10-17] VITALS (19 sets, daily range): BP systolic 72–138; BP diastolic 40–90
--- NOTE | 2019-10-17 02:18 | NUR ---
[id number]- NEW IV STARTED TO RFA X1 ATTEMPT;#22 GAUGE TO RFA. RAC IV SITE REMOVED WITH CATHETER TIP INTACT. PT. C/O ABD PAIN/CRAMPING 04/18 AND MEDICATED WITH ORDERED IV DILAUDID; WILL REASSESS.
--- NOTE | 2019-10-17 04:20 | NUR ---
PT. CALLED STAFF INTO ROOM AND PT REPORTING SHE AWAKENED TO SEEING A "BUGLIKE" THING GO ACROSS THE ROOM AND HEARD A LOUD NOISE IN THE BATHROOM. PT. IS A/A/O X3 AT THIS TIME. BATHROOM CHECKED NOTHING NOTICED OUT OF PLACE. ENCOURAGED TO CALL FOR ANY NEEDS. WILL CONTINUE TO MONITOR.
[2019-10-17 04:48] LABS: HEMATOCRIT 31.9 % (37.0-47.0); HEMOGLOBIN 10.1 g/dl (12.0-16.0); MEAN CELL VOLUME 101.6 fL CALC (80.0-100.0); MEAN CORPUSCULAR HGB 32.2 pG CALC (26.0-32.0); MEAN CORPUSCULAR HGB CONC 31.7 g/L CALC (32.0-36.0); RED BLOOD COUNT 3.14 mill/uL (4.20-5.60); RED CELL DISTRI WIDTH 14.1 % (11.5-15.5)
[2019-10-17 05:03] LABS: ANION GAP 8 (6-22 (CALC)); BUN < 2 mg/dL (7-17); CARBON DIOXIDE 27 mmol/l (22-30); CHLORIDE 104 mmol/l (95-108); CREATININE 0.4 mg/dL (0.5-1.0); GFR > 60 ML/MIN (>=60 (CALC)); GFR FOR AFR.AMER. > 60 ML/MIN (>=60 (CALC)); MAGNESIUM 1.4 mg/dL (1.6-2.3); POTASSIUM 3.7 mmol/l (3.5-5.1); SODIUM 135 mmol/l (137-146)
--- NOTE | 2019-10-17 05:49 | NUR ---
PT. SITTING UP IN RECLINER, NO RESP. DISTRESS NOTED. PT. REPORTS STOOLS ARE LIQUID AND CLEAR WITH A SLIGHT YELLOWISH COLOR. C/O ABOMINAL PAIN AND MEDICATED WITH ORDERED PRN DILAUDID/ZOFRAN PER ORDER; WILL REASSESS. PT. HAS REMAINED NPO SINCE MIDNIGHT PER ORDER. CALL LIGHT IS IN REACH.
--- NOTE | 2019-10-17 07:15 | NUR ---
REPORT RECEIVED FROM STEFANORN;PT OOB USING RESTROOM WITH SPOUSE AT BEDSIDE;INTRODUCED SELF TO PT AND POC DISCUSSED;RESPIRATIONS APPEAR EVEN AND UNLABORED ON RA;PT DENIES ANY CURRENT PAIN OR NEEDS;IV FLUIDS INFUSING WITH EASE PER ORDER;TELE MONITORING IN PLACE;NPO DIET REINFORCED;PT ENCOURAGED TO CALL FOR ASSISTANCE IF NEEDED;ALL SAFETY PRECAUTIONS IN PLACE WITH CALL LIGHT IN REACH;WILL CONTINUE TO MONITOR
--- NOTE | 2019-10-17 07:50 | NUR ---
PT RESTING AT BEDSIDE WITH VISITOR AT SIDE,A&O X3;VS OBTAINED AND ASSESSMENT COMPLETED;PT DENIES ANY CURRENT PAIN OR DISCOMFORTS,PAIN SCALE AND REPORTING EDUCATED;RESPIRATIONS EVEN AND UNLABORED ON RA,COARSE LUNG SOUNDS NOTED;ABDOMEN DISTENDED/SOFT ON PALPATION AND HYPOACTIVE IN ALL 4 QUADRANTS;WEAK PEDAL PULSES WITH TRACE EDEMA NOTED TO BLE,ENCOURAGED ELEVATION;SKIN INTACT;TELE MONITORING IN PLACE;#22G TO RFA INFUSING NS @ KVO PER ORDER;NPO DIET REINFORCED AND PT VERBALIZES UNDERSTADING;PT DENIES ANY ADDITIONAL NEEDS AT THIS TIME AND IS ENCOURAGED TO CALL FOR ASSISTANCE IF NEEDED;CALL LIGHT IN REACH;WILL CONTINUE TO MONITOR
--- NOTE | 2019-10-17 08:31 | NUR ---
PT TRANSPORTED TO OR IN STABLE CONDITION VIA HOSPITAL BED ACCOMPANIED BY OR STAFF MEMBER.
--- NOTE | 2019-10-17 15:56 | NUR ---
PT ARRIVED BACK TO MED/SURG ROOM 290 IN STABLE CONDITION VIA HOSPITAL BED ACCOMPANIED BY BONNY SOLITARIO;PT A&O X3, BUT DROWSY AND CONFUSED AT TIMES R/T PAIN MEDICATION;BEDSIDE REPORT RECEIVED FROM BONNY SOLITARIO;RESPIRATIONS SHALLOW ON O2 @ 2L VIA NC;ABDOMEN DISTENDED/SOFT ON PALPATION AND HYPOACTIVE IN ALL 4 QUADRANTS;ABDOMINAL BINDER IN PLACE WITH X2 INCISIONAL AREAS NOTED TO ABDOMEN WITH DRESSING CDI;HAILE CATHETER PATENT DRAINING YELLOW URINE TO GRAVITY WITH EASE;SCD'S IN PLACE;TELE MONITORING NOTED;#22G TO RFA SL AND PATENT & #18G TO RAC INFUSING FLUIDSPER ORDER AT 150ML/HR;ICE CHIPS PROVIDED PER REQUEST;BP ON THE LOWER SIDE 89/51,VS TO BE OBTAINED PER POST OP PROTOCAL;PT DENIES ANY CURRENT PAIN OR NEEDS,PAIN SCALE AND REPORTING RE-EDUCATED;PT ENCOURAGED TO CALL FOR ASSISTANCE IF NEEDED;VISITOR AT BEDSIDE;CALL LIGHT IN REACH;WILL CONTINUE TO MONITOR
--- NOTE | 2019-10-17 16:45 | NUR ---
PT BP REMAINS LOW BUT SHE REMAINS ASYMPTOMATIC,ALEXA MUSTAFARP NOTIFIED.
[2019-10-17 17:06] LABS: URINE BILIRUBIN - DIPSTICK NEGATIVE (NEGATIVE); URINE BLOOD DIPSTICK TRACE-INTACT (NEGATIVE); URINE COLOR YELLOW; URINE GLUCOSE - DIPSTICK NEGATIVE (NEGATIVE); URINE KETONE NEGATIVE (NEGATIVE); URINE LEUK ESTERASE NEGATIVE (NEGATIVE); URINE NITRITE - DIPSTICK NEGATIVE (Negative); URINE PROTEIN - DIPSTICK TRACE mg/dL (NEG-TRACE); URINE UROBILINOGEN - DIPSTICK 0.2 E.U./dL (0.2)
--- NOTE | 2019-10-17 17:33 | NUR ---
PT BP REMAINS 80'S OVER 40'S AFTER BOLUS. ORDERS TO TRANSFER PT TO ICU OBTAINED. SUPERVISIOR NOTIFIED AND WILL CALL IN ICU STAFF MEMBERS. ICU TO CALL PLC ENGINEER PHYSICAN FOR ORDERS AFTER TRANSFER.PT NOTIFIED AND VERBALIZES UNDERSTANDING IN POC CHANGES.WILL CONTINUE TO MONITOR CLOSELY
--- NOTE | 2019-10-17 19:18 | NUR ---
LAB AT BEDSIDE
--- NOTE | 2019-10-17 19:18 | NUR ---
REPORT CALLED TO BONNY MENDOZA IN ICU. PT T BE TRANSPORTED TO ICU BED 4 VIA HOSPITAL BED ACCOMPANIED BY AGUS AND USHA Falcon CNA.
--- NOTE | 2019-10-17 19:24 | NUR ---
PT TRANSPORTED TO ICU BED 4 AT THIS TIME.
--- NOTE | 2019-10-17 19:25 | NUR ---
RECEIVED PT FROM MED/SURG. PT AWAKE AND ALERT.
--- NOTE | 2019-10-17 19:45 | NUR ---
PT AAOX3, ABD INCISION DRY AND INTACT. D5 1/2 NS INFUSING TO #18 R AC. SCD'S ON. NO C/O DIZZINESS OR LIGHTHEADED. SON AT BEDSIDE. REVIEWED ROOM SAFETY, CALL BERKOWITZ IN REACH.
--- NOTE | 2019-10-17 20:30 | NUR ---
PT REQUESTED RN TO SCRATCH HER RECTUM. FACE CLOTH PROVIDED TO PT FOR HER TO SCRATCH SAME.
--- NOTE | 2019-10-17 20:49 | NUR ---
REVIEWED DIET OF ICE CHIPS ONLY AT THIS TIME. CALL BERKOWITZ IN REACH.
--- NOTE | 2019-10-17 21:00 | NUR ---
PT LYING ON L SIDE. RESP EVEN AND UNLABORED. CALL BERKOWITZ IN REACH.
--- NOTE | 2019-10-17 22:00 | NUR ---
PT LYING ON L SIDE, OPENED EYES WHEN RN ENTERED ROOM. PT C/O 8/10 ABD ACHING PAIN. MEDICATED. CALL BERKOWITZ IN REACH.
[2019-10-18] VITALS (22 sets, daily range): BP systolic 87–125; BP diastolic 41–66
--- NOTE | 2019-10-18 | NUR ---
PT WITH EYES CLOSED, RESPONDED TO VERBAL STIMULI. REQUESTED ICE CHIPS, PROVIDED. ASSISTED PT TO TURN ON R SIDE. CALL BERKOWITZ IN REACH.
--- NOTE | 2019-10-18 02:00 | NUR ---
PT AWAKE AND ALERT, REQUESTED HELP WITH BLANKETS. REQUESTED ICE CHIPS. HAILE WITH GIANA CLOUDY URINE. CALL BERKOWITZ IN REACH.
--- NOTE | 2019-10-18 04:00 | NUR ---
PT AWAKE AND ALERT WATCHING TV. PT C/O ABD PAIN. REQUESTED PAIN MED. TORADOL GIVEN, DILUADID HELD AT THIS TIME DUE TO HYPOTENSION.
[2019-10-18 05:01] LABS: IMMATURE GRANULOCYTES 1.5 % (0.0-5.0); MEAN CELL VOLUME 102.1 fL CALC (80.0-100.0); MEAN CORPUSCULAR HGB 32.2 pG CALC (26.0-32.0); MEAN CORPUSCULAR HGB CONC 31.5 g/L CALC (32.0-36.0); NEUT# 22.73 thou/uL (2.00-7.15); RED BLOOD COUNT 2.36 mill/uL (4.20-5.60); RED CELL DISTRI WIDTH 14.6 % (11.5-15.5)
[2019-10-18 05:04] LABS: HEMATOCRIT 24.1 % (37.0-47.0); HEMOGLOBIN 7.6 g/dl (12.0-16.0)
[2019-10-18 05:15] LABS: ANION GAP 10 (6-22 (CALC)); BUN 8 mg/dL (7-17); BUN/CREATININE RATIO 7 (12-20 (CALC)); CARBON DIOXIDE 23 mmol/l (22-30); CHLORIDE 105 mmol/l (95-108); CREATININE 1.1 mg/dL (0.5-1.0); GFR 51 ML/MIN (>=60 (CALC)); GFR FOR AFR.AMER. > 60 ML/MIN (>=60 (CALC)); MAGNESIUM 1.1 mg/dL (1.6-2.3); POTASSIUM 3.9 mmol/l (3.5-5.1); SODIUM 135 mmol/l (137-146)
--- NOTE | 2019-10-18 06:00 | NUR ---
PT AWAKE AND ALERT. ABD REMAINS DISTENDED, SOFT. DRAINAGE NOTED ON LOWER ABD DRESSING. PT C/O PAIN TO BILAT THIGHS. SCD'S IN PLACE. REQUESTED ADDITONAL PAIN MED. CALL BERKOWITZ IN REACH.
--- NOTE | 2019-10-18 06:30 | NUR ---
LAB AT BEDSIDE FOR TYPE AND SCREEN.
--- NOTE | 2019-10-18 06:56 | NUR ---
REPORT TO OANH DRAPER.
--- NOTE | 2019-10-18 07:00 | NUR ---
PT RESTING IN BED AWAKE. PT IS ALERT AND ORIENTED X3. SHIFT ASSESSMENT COMPLETED AT THIS TIME. IV PATENT X2. CALL LIGHT IN REACH. WILL CONTINUE TO MONITOR.
--- NOTE | 2019-10-18 07:14 | NUR ---
RT AT BEDSIDE FOR INCENTIVE SPIROMETER TEACHING
--- NOTE | 2019-10-18 07:30 | NUR ---
ICE CHIPS PROVIDED PER PT REQUEST
--- NOTE | 2019-10-18 07:50 | NUR ---
CONSENT OBTAINED FOR BLOOD AND OR BLOOD PRODUCTS
--- NOTE | 2019-10-18 08:40 | NUR ---
WENT INTO ROOM TO HANG PRBCS. #22 TO RFA IS NOTED TO BE SLIGHTLY AWOLLEN. BLOOD NOTED ON ARM. WHEN DILAUDID PUSHED EARLIER THIS SHIFT IV SITE HAD A POSITIVE BLOOD RETURN. PT DENIES PAIN AT SITE. IV SITE DC'D OFFERRED COLD COMPRESS. PT ONLY WANTS NEW IV PLACED ON RIGHT SIDE. IV ATTEMPTED X2 BY THIS NURSE. Candice AZEVEDO AT BEDSIDE AT THIS TIME FOR IV ACCESS.
--- NOTE | 2019-10-18 09:00 | NUR ---
SPOKE WITH PHARMACIST RADHA TO VERIFY THAT CALCIUM INFILTRATE HAD NO SPECIAL RECOMMENDATIONS. HE VERIFIED TO APPLY A DRY COLD COMPRESS AND ELEVATE. THESE RECOMMENDATIONS CARRIED OUT.
--- NOTE | 2019-10-18 09:15 | NUR ---
IV ATTEMPTS BY NURSING X2 UNSUCCESSFUL AT THIS TIME. SPOKE WITH DR LONG. OK TO HOLD REMAINING CALCIUM INFUSION UNTIL MAGNESIUM IS FINISHED.
--- NOTE | 2019-10-18 09:23 | NUR ---
BLOOD STARTED PER TRANSFUSION CHARTING.
--- NOTE | 2019-10-18 09:30 | NUR ---
ICE CHIPS PROVIDED PER PT REQUEST
--- NOTE | 2019-10-18 09:39 | NUR ---
LAB AT BEDSIDE AT THIS TIME TO OBTAIN BLOOD CULTURES.
--- NOTE | 2019-10-18 09:53 | NUR ---
WHEN REASSESSING PAIN LEVEL PATIENT STATES IT DOES NOT HURT UNTIL SOMEONE ENTERS THE ROOM.
--- NOTE | 2019-10-18 10:00 | NUR ---
BUSINESS OFFICE AT BEDSIDE AT THIS TIME
--- NOTE | 2019-10-18 10:23 | NUR ---
PT CHEST PAIN COORDINATOR LIGHT FOR THIS NURSE TO ASSIST HER IN TURNING. ENCOURAGED PATIENT TO GET SOME REST DUE TO PATIENT STATING THAT SHE "HAS NOT SLEPT IN DAYS" WILL CONTINUE TO MONITOR CLOSELY
--- NOTE | 2019-10-18 11:11 | NUR ---
PT REPORTS PASSING GAS AT THIS TIME
--- NOTE | 2019-10-18 11:19 | NUR ---
MAG AND CLACIUM INFUSIONS ARE NOW BOTH COMPLETED AT THIS TIME.
--- NOTE | 2019-10-18 11:39 | NUR ---
1ST UNIT OF PRBCS COMPLETED AT THIS ITME
--- NOTE | 2019-10-18 11:49 | NUR ---
SECOND UNIT OF PRBCS STARTED PER TAR CHARTING
--- NOTE | 2019-10-18 12:50 | NUR ---
DR EMERY AT BEDSIDE AT THIS TIME. ORDERS RECEIVED TO CHANGE DRESSING.
--- NOTE | 2019-10-18 13:15 | NUR ---
DRESSING CHANGE COMPLETED AT THIS TIME. REMOVED PREVIOUS DRESSING. BLOODY DRAINAGE NOTED ON PREVIOUS ABD. 2 NEW ABD PADS APPLIED AND SECURED WITH TAPE. ASSISTED PT IN REPOSITIONING IN BED. PT TOLERATED WELL.
--- NOTE | 2019-10-18 13:45 | NUR ---
PT STATES THAT SHE HAD A BM IN THE BED. PT CLENASED AND LINENS CHANGED. SISTER VISITING AT BEDSIDE. CALL LIGHT IN REACH. WILL CONTINUE TO MONITOR
--- NOTE | 2019-10-18 14:00 | NUR ---
SISTER TO THIS CHASSIS INSPECTOR AND STATES THAT PATIENT DRINKS AT LEAST A 12 PACK A [address] NOTIFIED [address] LONG OF THE SAME.
--- NOTE | 2019-10-18 14:15 | NUR ---
PT NOTED TO HAVE ONLY 50CC IN HAILE BAG AT 3 HOURS POST LASIX. BLADDER SACN SHOWS 27ML. IRRIGATED HAILE WITH 60CC NS AND 60 CC RETURNED.
--- NOTE | 2019-10-18 14:30 | NUR ---
WHILE SCANNING PATIENTS BLADDER PT STATES "I STILL GET HORNY SOMETIMES JUST NOT OFTEN ANYMORE". PT ENCOURAGED TO BE APPROPRIATE WITH STAFF.
--- NOTE | 2019-10-18 14:44 | NUR ---
DR LONG NOTIFIED OF URINE OUTPUT AND INTERVENTIONS THUS FAR.
--- NOTE | 2019-10-18 14:53 | NUR ---
DR LONG NOTIFIED OF SISTERS STATEMENTS OF PT ALCOHOL INTAKE.
--- NOTE | 2019-10-18 15:28 | NUR ---
ATIVAN GIVEN PER MAR FOR INCREASED PT AGITATION.
--- NOTE | 2019-10-18 15:58 | NUR ---
PT RESTING IN BED. RESP ARE EVEN AND UNLABORED. NO DISTRESS NOTED. CALL LIGHT IN REACH. WILL CONTINUE TO MONITOR
--- NOTE | 2019-10-18 17:10 | NUR ---
VISITOR MICHELLE INTO ROOM. ENCOURAGED VISITOR TO ALLOW PATIENT TO REST.
--- NOTE | 2019-10-18 17:59 | NUR ---
PT RESTING INBED WITH EYES CLOSED. RESP ARE EVEN AND UNLABORED. NO DISTRESS NOTED. CALL LIGHT IN REACH. WILL CONTINUE TO MONITOR.
--- NOTE | 2019-10-18 18:38 | NUR ---
DR LONG NOTIFIED OF NO URINE OUTPUT.
--- NOTE | 2019-10-18 19:35 | NUR ---
AWAKE, RESTING IN BED ON ROUNDS. VSS. RESP NON-LABORED. RA O2 SAT 97% BREATH SOUNDS CLEAR THROUGHOUT. ABD SOFTLY DISTENDED WITH HYPOACTIVE BOWEL SOUNDS HEARD. HAILE WITH NO OUTPUT AT THIS TIME. 1+ GENERALIZED EDEMA PRESENT. PERIPHERAL PULSES PALPABLE. NS INFUSING TO RAC IV SITE AT 150 ML/HR. IV SITE BENIGN. SCD'S IN PLACE BILATERALLY. AUDIO PRODUCTION INSTRUCTOR SHOWS SR. DISCUSSED PLAN OF CARE AND PREVENTION OF POST-OP COMPLICATIONS. ENCOURAGED TO GET UP IN CHAIR WITH ASSIST AND USE IS. PATIENT VERBALIZES UNDERSTANDING OF TEACHING. CALL BERKOWITZ IN REACH.
--- NOTE | 2019-10-18 20:30 | NUR ---
PATIENT SPMNIN TO VISIT. PATIENT ATTEMPTING TO GET OOB ON HER OWN. PATIENT STATES WAMTS TO GO INTO BR FOR BM. PATIENT AMBULATED TO BR WITH ONE ASSIST. SLT UNSTEADY. REINFORCED NEED FOR ASSISTANCE OOB. PATIENT HAD SMALL LIQUID BROWN STOOL. AMBULATED FROM BR TO CHAIR.
--- NOTE | 2019-10-18 21:00 | NUR ---
RETURNED TO BED. LLQ 2X2 SOILED WITH SEROSANGUINOUS DRAINAGE, DRESSING CHANGE COMPLETED. INC LINE CDI.
--- NOTE | 2019-10-18 22:30 | NUR ---
PATIENT WITH FREQ COMPLAINTS OF DISCOMFORT FROM HAILE, STATES "I FEEL LIKE IT IS OUT." FREQ ATTEMPTS TO REASSURE PATIENT. DISCUSSED WITH PATIENT DC AND REINSERTING HAILE, PATIENT AGREED. HAILE REMOVED AND PATIENT STATED SHE DID NOT WANT ANOTHER ONE IN. CALL TO DR GRAY REGARDING REMOVAL OF HAILE AND LOW URINE OUTPUT FOR TODAY AND GENERALIZED EDEMA. NEW ORDERS RECEIVED.
--- NOTE | 2019-10-18 23:00 | NUR ---
LASIX 40 MG IVP GIVEN ORDERED. PATIENT ASKS TO SIT AT SIDE OF BED. ASSISTED TO SIT AT BEDSIDE. TAKING ICE CHIPS. NO C/O NAUSEA.
[2019-10-19] VITALS (11 sets, daily range): BP systolic 99–138; BP diastolic 54–69
--- NOTE | 2019-10-19 00:10 | NUR ---
PATIENT LYING DOWN IN BED. C/O FEELING ANXIOUS. MEDICATED WITH 1 MG ATIVAN IVP ORDERED FOR ANXIETY. MO AMOUNT OF SEROSANGUINOUS DRAINAGE NOTED FROM LLQ SITE, REDRESSED. PATIENT DENIES URGE TO VOID AT THIS TIME.
--- NOTE | 2019-10-19 00:30 | NUR ---
PATIENT RESTING WITH EYES CLOSED. RESP NO-LABORED. O2 SAT 100%
--- NOTE | 2019-10-19 02:00 | NUR ---
SLEEPING SOUNDLY. VSS. NS CONTINUES TO INFUSE WITHOUT INCIDENT. SR ON REHABILITATION THERAPIST.
--- NOTE | 2019-10-19 03:00 | NUR ---
PATIENT HAS HAD NO REPSONSE TO LASIX GIVEN EALIER. WILL CONTINUE TO MONITOR.
--- NOTE | 2019-10-19 04:00 | NUR ---
PATIENT AROUSES TO NAME. BLOOO DRAWN FOR AM LABS BY RADHA HANSEN. PATIENT DENIES DISCOMFORTS AT THIS TIME. QUICKLY BACK TO SLEEP.
[2019-10-19 05:17] LABS: HEMATOCRIT 29.4 % (37.0-47.0); HEMOGLOBIN 9.2 g/dl (12.0-16.0); IMMATURE GRANULOCYTES 2.9 % (0.0-5.0); MEAN CELL VOLUME 99.7 fL CALC (80.0-100.0); MEAN CORPUSCULAR HGB 31.2 pG CALC (26.0-32.0); MEAN CORPUSCULAR HGB CONC 31.3 g/L CALC (32.0-36.0); NEUT# 14.69 thou/uL (2.00-7.15); RED BLOOD COUNT 2.95 mill/uL (4.20-5.60); RED CELL DISTRI WIDTH 19.5 % (11.5-15.5)
--- NOTE | 2019-10-19 05:30 | NUR ---
PATIENT BLADDER SCAN REVEALED 137 ML URINE. PATIENT DENIES ANY URGE TO VOID. OFFERED TO ASSIST HER UP TO BSC TO ATTMEPT TO VOID AND SHE STATES SHE IS STILL SO SLEEPY.
[2019-10-19 05:47] LABS: ALBUMIN 2.2 g/dL (3.2-5.0)
--- NOTE | 2019-10-19 06:00 | NUR ---
SLEEPING. IV SITE MAINTAINED IN RAC WITH NS AT 150 ML/HR. O2 ON AT 2 L NC. O2 SAT 100% REMIANS IN SR ON MONITOR.
--- NOTE | 2019-10-19 07:30 | NUR ---
PT RESTING IN BED AWAKE. PT IS ALERT AND ORIENTED X3. SHIFT ASSESSMNET COMPLETED AT THIS TIME. IV PATENT X1. ASSISTED PT UP TO RECLINER AT THIS TIME. ICE CHIPS PROVIDED PER PATIENT REQUEST. PT REFUSED TO SIT ALL THE WAY BACK IN CHAIR AFTER MUCH ENCOURAGEMENT. INCENTIVE SPIROMETER FOUND IN PATIENT HOME BAG. ENCOURAGED PATIENT TO USE IS WHILE AWAKE. CALL LIGHT IN REACH. WILL CONTINUE TO MONITOR.
--- NOTE | 2019-10-19 08:10 | NUR ---
PT MEDICATED FOR PAIN. WHILE IN ROOM PATIENT STATES " I WANT A CIGARETTE" NICOTINE PATCH OFFERRED PT REFUSED. PT THEN STATED "I AM GOING TO SNEAK OUT AND GO OVER BY THAT TREE" EXPLAINED TO PATIENT AGAIN THAT THIS IS A TOBACCO FREE FACILITY.
--- NOTE | 2019-10-19 08:32 | NUR ---
DR EMERY AT BEDSIDE AT THIS TIME.
--- NOTE | 2019-10-19 09:16 | NUR ---
DR LONG AT BEDSIDE AT THIS TIME
--- NOTE | 2019-10-19 09:34 | NUR ---
PT SET UP TO GIVE SELF BATH AND BRUSH TEETH.
--- NOTE | 2019-10-19 10:15 | NUR ---
PT SITTING UP IN RECLINER HAS NOT BATHED. ASSISTED PATIENT IN BATH AT THIS TIME. LINENS CHANGED. BRUSHED PATIENTS HAIR PER PATIENT REQUEST. PATIENT RAMBLES ABOUT INAPPROPRIATE REMARKS. PATIENT ASSISTED BACK TO BED. CALL LIGHT IN REACH. WILL CONTINUE TO MONITOR.
--- NOTE | 2019-10-19 10:50 | NUR ---
MEDICATED PATIENT WITH ATIVAN PER OCT.
--- NOTE | 2019-10-19 12:19 | NUR ---
PT RESTING IN BED WITH EYES CLOSED. RESP ARE EVEN AND UNLABORED. NO DISTRESS NOTED. CALL LIGHT IN REACH. WILL CONTINUE TO MONITOR
--- NOTE | 2019-10-19 12:49 | NUR ---
DR. MARCH AT BEDSIDE FOR ASSESSMENT AND TO DISCUSS PLAN OF CARE.
--- NOTE | 2019-10-19 13:15 | NUR ---
PT NOTED TO BE STANDING UP IN ROOM. ENCOURAGED PT TO USE CALL LIGHT. PT VERBALIZES UNDERSTANDING.
--- NOTE | 2019-10-19 13:52 | NUR ---
PT SEATED IN RECLINER AT BEDSIDE. GOING THROUGH MULTIPLE BAGS. PT STATES THAT SHE IS ORGANIZING. PT REMAINS ALERT AND ORIENTED X3. ENCOURAGED TO USE CALL LIGHT.
--- NOTE | 2019-10-19 14:30 | NUR ---
PT ASSISTED BACK TO BED AT THIS TIME. BLADDER SCANNED PATIENT SHOWS 150ML. HAILE PLACED USING STERILE TECHNIQUE WITH IMMEADIATE RETURN OF URINE NOTED. PT TOLERATED WELL.
--- NOTE | 2019-10-19 15:30 | NUR ---
DR LONG NOTIFIED OF INCREASED ABD DISTENTION.
--- NOTE | 2019-10-19 16:00 | NUR ---
RADIOLOGY AT BEDSIDE AT THIS TIME
--- NOTE | 2019-10-19 16:07 | NUR ---
PT RESTING IN BED WITH EYES CLOSED. RESP ARE EVEN AND UNLABORED. NO DISTRESS NOTED. CALL LIGHT IN REACH. WILL CONTINUE TO MONITOR
--- NOTE | 2019-10-19 16:43 | NUR ---
PT RESTING IN BED AWAKE. PT CONFUSED AT THIS TIME. BED ALARM PLACED FOR PATIENT SAFETY. CALL LIGHT IN REACH. WILL CONTINUE TO MONITOR.
--- NOTE | 2019-10-19 19:30 | NUR ---
PT SITTING ON SIDE OF BED, NO SIGNS OF DISTRESS NOTED, RESP EVEN AND UNLABORED. VISITOR AT BEDSIDE. PT ALERT AND ORIENTED X3, HAILE DRAINING TO GRAVITY, STAT LOCK IN PLACE, ABD BINDER TO ABD, DRESSING TO ABD INTACT. ASSESSMENT COMPLETED AT THIS TIME. VISITOR AT BEDSIDE, PT WANTS TO SIT IN RECLINER, ASSISTED PT, CALL LIGHT IN REACH,CONTINUE TO MONITOR.
--- NOTE | 2019-10-19 21:12 | NUR ---
PT ASSISTED BACK TO BED FROM RECLINER, PT MEDICATED FOR PAIN AT THIS TIME, ABD IN PLACE. HAILE DRAINING TO GRAVITY, CALL LIGHT IN REACH,CONTINUE TO MONITOR.
--- NOTE | 2019-10-19 22:46 | NUR ---
PT AWAKE STATES SHE CANNOT SLEEP, OFFERED PT ATIVAN, PT ACCEPTED. PT MEDICATED WITH ATIVAN, CALL LIGHT IN REACH,CONTINUE TO MONITOR.
[2019-10-20] VITALS (12 sets, daily range): BP systolic 98–141; BP diastolic 51–69
--- NOTE | 2019-10-20 00:30 | NUR ---
PT RESTING IN BED, C/O PAIN 10/10, BLOOD NOTED ON ABD BINDER. ABD BINDER REMOVED. NOTED DRESSING TO L ABD SATURATED. DRESSING REMOVED, JARROD X2 TO ABD INTACT, NEW DRESSING APPLIED. MIDINE DRESSING CHANGED WELL, NO LARGER SIZED ABD BINDERS AVAILABLE AT THIS TIME. X2 BINDERS APPLIED TO PT. PT WANTS TO SIT IN RECLINER. CALL LIGHT IN REACH,CONTINUE TO MONITOR.
--- NOTE | 2019-10-20 03:36 | NUR ---
PT CONTINUES TO BE RESTLESS, CANT GET COMFORTABLE, YELLING OUT. PT MEDICATED WITH IV ATIVAN, PT TOLERATED WELL, CALL LIGHT IN REACH,CONTINUE TO MONITOR.
--- NOTE | 2019-10-20 05:01 | NUR ---
PHLEB AT BEDSIDE TO OBTAIN AM LABS, CALL LIGHT IN REACH,CONTINUE TO MONITOR.
[2019-10-20 05:25] LABS: HEMATOCRIT 28.5 % (37.0-47.0); HEMOGLOBIN 8.9 g/dl (12.0-16.0); IMMATURE GRANULOCYTES 5.2 % (0.0-5.0); MEAN CELL VOLUME 100.7 fL CALC (80.0-100.0); MEAN CORPUSCULAR HGB 31.4 pG CALC (26.0-32.0); MEAN CORPUSCULAR HGB CONC 31.2 g/L CALC (32.0-36.0); NEUT# 13.51 thou/uL (2.00-7.15); RED BLOOD COUNT 2.83 mill/uL (4.20-5.60)
[2019-10-20 06:50] LABS: ALBUMIN 2.1 g/dL (3.2-5.0); POTASSIUM 3.8 mmol/l (3.5-5.1)
[2019-10-20 06:51] LABS: CREATININE 3.1 mg/dL (0.5-1.0)
--- NOTE | 2019-10-20 07:30 | NUR ---
REPORT RECEIVED FROM NIGHT NURSE. PT RESTING IN BED. NO DISTRESS NOTED. DENIES PAIN. WILL CONTINUE TO MONITOR.
--- NOTE | 2019-10-20 08:25 | NUR ---
LEFT LOWER ABDOMEN DRESSING SATURATED. DRESSING CHANGED. SEROSANGUINEOUS DISCHARGE FROM LAP PUNCTURE SITE NOTED. BRUISING AND BLISTER AROUND WOUND NOTED.
--- NOTE | 2019-10-20 08:30 | NUR ---
DR. LONG AT BEDSIDE TO ASSESS PT. DR. LONG NOTIFIED OF BLOOD IN PATIENT URINE AND WOUND DISCHARGE.
--- NOTE | 2019-10-20 09:30 | NUR ---
NOTIFIED THAT LEFT LOWER ABDOMEN DRESSING SATURATED WITHIN AN HOUR OF DRESSING CHANGE.
--- NOTE | 2019-10-20 09:54 | NUR ---
DR. AVALOS AT BEDSIDE TO ASSESS PT. PER DR. EMERY PLACE WOUND VAC ON INCISION/PUNCTURE SITE.
--- NOTE | 2019-10-20 10:15 | NUR ---
PT SITTING UP IN CHAIR. NO DISTRESS NOTED. WILL CONTINUE TO MONITOR.
--- NOTE | 2019-10-20 11:00 | NUR ---
BONNY SEXTON AT BEDSIDE TO PLACE WOUND VAC PER DR. EMERY ORDER
--- NOTE | 2019-10-20 12:30 | NUR ---
PT RESTING IN BED. NO DISTRESS NOTED. PT EATING LUNCH. WILL CONTINUE TO MONITOR
--- NOTE | 2019-10-20 14:02 | NUR ---
PT RESTING IN BED. FAMILY AT BEDSIDE. NO DISTRESS NOTED. WILL CONTINUE TO MONITOR
--- NOTE | 2019-10-20 16:49 | NUR ---
PT SETTING UP IN BED. FAMILY AT BEDSIDE. NO DISTRESS NOTED. PT RECEIVED PAIN MEDICATION FOR PAIN. WILL CONTINUE TO MONITOR,
--- NOTE | 2019-10-20 18:15 | NUR ---
PT UP IN CHAIR FOR DINNER. NO DISTRESS NOTED. WILL CONTINUE TO MONITOR
--- NOTE | 2019-10-20 19:10 | NUR ---
REPORT GIVEN BY DEZ DRAPER. PATIENT IN THE RECLINER WATCHING TV WITH DAUGHTER AT BEDSIDE. RESP EVEN AND UNLABORED. NO S/S OF DISTRESS NOTED. MIDLINE DRESSING CDI. WOUND VAC PRESENT LLQ. +2 EMDEMA PRESENT. HAILE DRAINING TO GRAVITY. PLAN OF CARE DISCUSSED. PATIENT INFORMED TO CALL WITH ANY QUESTIONS OR CONCERNS. FALL PRECATUIONS IN PLACE.
--- NOTE | 2019-10-20 19:45 | NUR ---
PATIENT TRANSFERED TO BED FROM [facility].
--- NOTE | 2019-10-20 23:41 | NUR ---
PATIENT UP AT SIDE OF BED. RESP EVEN AND UNLABORED. NO S/S OF DISTRESS NOTED.
[2019-10-21] VITALS (9 sets, daily range): BP systolic 114–165; BP diastolic 47–81
--- NOTE | 2019-10-21 00:51 | NUR ---
ABD MIDLINE DRESSING CHANGE PERFORMED.
--- NOTE | 2019-10-21 00:56 | NUR ---
PATIENT UP TO BSC, HAD MOD BM
[2019-10-21 05:11] LABS: HEMATOCRIT 28.6 % (37.0-47.0); HEMOGLOBIN 8.9 g/dl (12.0-16.0); MEAN CELL VOLUME 101.4 fL CALC (80.0-100.0); MEAN CORPUSCULAR HGB 31.6 pG CALC (26.0-32.0); MEAN CORPUSCULAR HGB CONC 31.1 g/L CALC (32.0-36.0); RED BLOOD COUNT 2.82 mill/uL (4.20-5.60); RED CELL DISTRI WIDTH 18.4 % (11.5-15.5)
--- NOTE | 2019-10-21 05:33 | NUR ---
PATIENT CURRENTLY VOMITING
[2019-10-21 05:40] LABS: ALBUMIN 2.1 g/dL (3.2-5.0); POTASSIUM 4.1 mmol/l (3.5-5.1); TOTAL PROTEIN 4.6 g/dL (6.3-8.2)
[2019-10-21 05:44] LABS: BILIRUBIN, TOTAL 0.5 mg/dL (0.0-1.4); CREATININE 4.2 mg/dL (0.5-1.0)
--- NOTE | 2019-10-21 06:00 | NUR ---
ZOFRAN GIVEN AND PATIENT IS NO LONGER VOMITING.
--- NOTE | 2019-10-21 07:45 | NUR ---
REPORT RECEIVED FROM NIGHT NURSE. PT RESTING IN BED WITH EYES CLOSED. NO DISTRESS NOTED. FAMILY AT BEDSIDE. WILL CONTINUE TO MONITOR.
--- NOTE | 2019-10-21 08:30 | NUR ---
DR. LONG AT BEDSIDE TO ASSESS PT. NOTIFIED OF PT URINE OUT BEING LOW AND PINK IN COLOR. WILL CONTINUE TO MONITOR.
--- NOTE | 2019-10-21 10:10 | NUR ---
DR EMERY AT BEDSIDE TO ASSESS PT
--- NOTE | 2019-10-21 10:35 | NUR ---
DR LIGHT AT BEDSIDE TO ASSESS PT
--- NOTE | 2019-10-21 12:15 | NUR ---
PT RESTING IN BED WITH EYES CLOSED. NO DISTRESS NOTED. WILL CONTINUE TO MONITOR.
--- NOTE | 2019-10-21 15:26 | NUR ---
PT RECEIVED BED BATH. PT AMBULATED AROUND ROOM WITH RN. PT RECEIVED PAIN MEDICATIONS. ABDOMINAL MIDLINE INCISION DRESSING CHANGED. NO DISTRESS NOTED.
--- NOTE | 2019-10-21 16:05 | NUR ---
PT RESTING IN BED. IV DRESSING CHNAGED. NO DISTRESS NOTED. PAIN IMPROVING WITH PRN MEDICATIONS. WILL CONTINUE TO MONITOR.
--- NOTE | 2019-10-21 18:00 | NUR ---
PT RESTING IN BED WITH EYES CLOSED. NO DISTRESS NOTED. WILL CONTINUE TO MONITOR. REPORT TO BE GIVEN TO NIGHT NURSE.
--- NOTE | 2019-10-21 19:10 | NUR ---
PATIENT SITS ON SIDE OF BED, REQUESTS TO BE TRANSFERRED TO RECLINER. ALERT AND ORIENTED X4. ON RA, NO SOB NOTED. NURSING ASSESSMENT COMPLETED. RAC 18 G IV INTAT, SALINE LOCKED. COMPLAINS OF ABD PAIN, EDUACTED O PAIN MED SCHEDULE. DRESSING ON MIDLINE ABD INTACT, NO DRAINAGE. LLQ WOUND VAC INTACT. HAILE CATH INTACT. POC FOR TONIGHT DISCUSSED. PATIENT ABLE TO WALK TO RECLINER, SLOWLY, ICE PROVIDED PER REQUEST, GOWN ON HER BACK PROVIDED PER REQUEST. CALL LIGHT WITHIN REACH.
--- NOTE | 2019-10-21 20:52 | NUR ---
PATIENT HAS HER SON AND DAUGHTER IN LAW AT BEDSIDE. PT PROCESS MANAGER LIGHT DU TO SHE FELT LIKE SHE HAD A SCRATCH FROM THE HAILE BAG ON HER LEG, NO SCRATCH NOTICED.
--- NOTE | 2019-10-21 21:09 | NUR ---
pain med given per request. family has left. pt sits up in bed, complains about pain on her leg from her l- leg rubbing on the lainez bag and abd pain. no other needs.
--- NOTE | 2019-10-21 22:55 | NUR ---
ANTIBIOTIC INFUSING NOW. PATIENT AWKAENS EASILY. NOW LAYS ON HER SUPINE. NO ACUTE DISTRESS SHOWN. WOUND VAC ON LLQ INTCAT. CALL LIGHT WITHIN REACH.
[2019-10-22] VITALS (9 sets, daily range): BP systolic 111–169; BP diastolic 54–80
--- NOTE | 2019-10-22 | NUR ---
PATIENT LAYS SUPINE, AWAKENS EASILY WITH NOISE. NO NEEDS AT THIS TIME. NO ACUTE DISTRESS SHOWN. CALL LIGHT WITHIN REACH
--- NOTE | 2019-10-22 03:46 | NUR ---
patient awakens easily with noise. noacute distress shown. no needs at this time. afebrile. call light within reach.
--- NOTE | 2019-10-22 05:40 | NUR ---
PATIENT GIVEN PAIN MEDICATION PER REQUEST. SHE WAS REPORTED SHE HAD A "BAD [place] ABOUT ALIENS COMING TO GET ME." PATIENT WAS REASSURED AND ABLE TO CALM DOWN. CALL LIGHT WITHIN REACH. WOUND VAC SITE ON LLQ INTACT, AND MIDLINE ABD DRESSING INTACT, NO DRAINAGE NOTED.
[2019-10-22 06:09] LABS: ALBUMIN 2.2 g/dL (3.2-5.0); POTASSIUM 4.1 mmol/l (3.5-5.1)
[2019-10-22 06:14] LABS: CREATININE 5.2 mg/dL (0.5-1.0)
--- NOTE | 2019-10-22 08:05 | NUR ---
PT RESTING IN BED WITH EYES CLOSED. NO DISTRESS NOTED. WILL CONTINUE TO MONITOR
--- NOTE | 2019-10-22 10:30 | NUR ---
DR. LONG AT BEDSIDE TO ASSESS PT-
--- NOTE | 2019-10-22 12:15 | NUR ---
PT UP IN BED FOR LUNCH. NO DISTRESS NOTED. FAMILY AT BEDSIDE. PRN MEDICATIONS FOR PAIN GIVEN. EDUCATED PT TO ELEVATE LEGS FOR SWELLING AND DO ROM. WILL CONTINUE TO MONITOR.
--- NOTE | 2019-10-22 16:30 | NUR ---
PT COMPLAING OF CRAMPING PAIN IN RUQ. DOES NOT WANT TYLENOL. ICE PACK GIVEN. AMNULATED IN ROOM. PT STATES ITS POSSIBLY GAS. WILL CONTINUE TO MONITOR
--- NOTE | 2019-10-22 19:45 | NUR ---
PT. TO MED/SURG AT THIS TIME.
--- NOTE | 2019-10-22 20:00 | NUR ---
PT ARRIVED TO MED SURG UNIT VIA STRETCHER ACCOMPANIED BY CONSTRUCTION ADMINISTRATOR BONNY BAÑUELOS. PT APPEARS TO BE IN STABLE CONDITION. DAUGHTER IS AT PT'S SIDE. PT DENIES ANY PAIN AT THIS TIME AND HAS JUST PREVIOUSLY BEEN MEDICATED FOR NAUSEA. WILL CONTINUE TO MONITOR AND FOLLOW-UP WITH FULL ASSESSMENT. PT ORIENTED TO ROOM AND PROVIDED COMFORT MEASURES.
--- NOTE | 2019-10-22 20:12 | NUR ---
REPORT TO BONNY HAMPTON.
--- NOTE | 2019-10-22 22:50 | NUR ---
PT MEDICATED W/IV ANTIBIOTIC THERAPY, PT REPORTS FEELING SLIGHTLY SICK ON STOMACH AND ASKED FOR BREAD AND JELLY/PROVIDED. PT IS EATING AND DRINKING/SNACKS AT BEDSIDE. PT HAS PREVIOUSLY BEEN MEDICATED W/ZOFRAN AND DENIES IT WORKS VERY WELL. PT REPORTS MILD TO MODERATE PAIN, BUT DENIED PAIN MEDICATION, STATING IT MAKES HER SICK AND IF SHE LIES VERY STILL SHE DOESN'T HAVE PAIN. WILL CONTINUE TO EDUCATE PT ON MEDICATIONS AND MOVING. LIGHTS ARE OUT, DAUGHTER IS ON COUCH AT BEDSIDE. DENIES ANY OTHER NEEDS AT THIS TIME. CALL LIGHT W/IN REACH OF PT.
[2019-10-23 04:11] VITALS: BP 129/69
--- NOTE | 2019-10-23 04:20 | NUR ---
AIDE IN W/PT OBTAINING V/S. NO S/O DISTRESS AT THIS TIME. WILL CONTINUE TO MONITOR. PT HAS BEEN ENCOURAGED TO CALL NEEDS ARISE. DAUGHTER ASLEEP AT BEDSIDE.
[2019-10-23 07:09] LABS: ALBUMIN 2.1 g/dL (3.2-5.0); POTASSIUM 4.2 mmol/l (3.5-5.1)
[2019-10-23 07:30] LABS: CREATININE 6.4 mg/dL (0.5-1.0)
[2019-10-23 09:00] VITALS: BP 156/71
--- NOTE | 2019-10-23 09:00 | NUR ---
PT RESTING IN BED, RAMBLES ABOUT CRAMPING AND BEING OOB TO WALK AND HURTING DIFFICULT FOR NURSE TO ANSWER PATIENT JUST CONTINUES TALKING, DOES ADMIT TO DECLINING PAIN MEDCATION "BECAUSE IT MAKES HER SICK" AM ASSESSMENT COMPLETED, WOUND VAC IN PLACE WITH MODERATE AMOUNT SEROUS DRNG NOTED, DRESSING TO MIDLIN INC INTACT, PT REMIND ABOUT THE IMPORTANCE OF I/S USGAGE AND OOB ACTIVITY TO IMPROVE PAIN, CRMAOING ETC....PT VERBALIZES UNDERSTANDING, MIC REMAINS INTACT PER MD UNTIL NEPHROLOGY GIVES CLEARANCE TO REMOVE RELATED TO KIDNEY FUNCTION. CALL BERKOWITZ WITHIN REACH.
--- NOTE | 2019-10-23 11:30 | NUR ---
PT REQUIRES FREQUENT ENCOURAGEMENT TO INCREASE ACTIVITY AND MOVEMENT, FAMILY AT BEDSIDE BUT OFFER NO INPUT.
[2019-10-23 12:00] VITALS: BP 151/66
--- NOTE | 2019-10-23 13:30 | NUR ---
PT REMINDED OF NEED TO WALK, STATES OH...I JUST ATE I'LL WALK IN A LITTE BIT....AGAIN REMINDED OF THE IMPORTANCE OF AMBULATION IN THE HEALING PROCESS VERBALIZES UNDERSTANDING
--- NOTE | 2019-10-23 14:30 | NUR ---
REPORT RECEIVED FROM BONNY SEXTON. PT SITTING UP ON EDGE OF BED WITH FAMILY AT BEDSIDE. ZOSYN INFUSING WITHOUT DIFFICULTY; IV SITE FLUSHES AND APPEARS HEALTHY. PT EXPERIENCING DRY HEAVES, BUT DENIES NAUSEA. DECLINES ZOFRAN.
--- NOTE | 2019-10-23 15:13 | NUR ---
PT AMBULATED IN HALLWAY WITH STAND BY ASSIST AND WALKER.
[2019-10-23 15:23] VITALS: BP 150/66
--- NOTE | 2019-10-23 18:55 | NUR ---
REPORT RECEIVED FROM BONNY BAÑUELOS. PT RESTING IN BED WITH FAMILY AT BEDSIDE. NO S/S OF DISTRESS AT THIS TIME. SAFETY PRECAUTIONS IN PLACE. WILL CONTINUE TO MONITOR.
--- NOTE | 2019-10-23 19:35 | NUR ---
PT RESTING IN BED, ALERT AND ORIETNED. RESPIRATIONS EVEN AND UNLABORED ON RA. LUNGS SOUND DIMINISHED. PEDAL PULSES STRONG. PT REPORT PAIN OF A 10/10 AND FEELING NAUSEOUS, PT TO BE MEDICATED PER EMAR ORDERS. SAFETY PRECAUTIONS IN PLACE. WILL CONTINUE TO MONITOR.
--- NOTE | 2019-10-24 00:10 | NUR ---
PT RESTING IN BED. NO S/S OF DISTRESS AT THIS TIME. SAFETY PRECAUTIONS IN PLACE. WILL CONTINUE TO MONITOR.
[2019-10-24 00:13] VITALS: BP 123/65
--- NOTE | 2019-10-24 03:47 | NUR ---
PT RESTING IN BED NO S/S OF DISTRESS AT THIS TIME. SAFETY PRECAUTIONS IN PLACE. WILL CONTINUE TO MONITOR.
[2019-10-24 04:30] VITALS: BP 128/65
[2019-10-24 05:47] LABS: ALBUMIN 2.1 g/dL (3.2-5.0); POTASSIUM 4.1 mmol/l (3.5-5.1)
[2019-10-24 08:00] VITALS: BP 134/73
--- NOTE | 2019-10-24 09:00 | NUR ---
PT AWAKE, ALERT, ORIENTED X 3. LUNGS CLEAR BUT DIMINISHED. PT WITHOUT APPETITE, REFUSED BREAKFAST. HAILE IN PLACE. WOUND VAC IN PLACE. PT AWARE OF PENDING CT ABDOMEN.
[2019-10-24 11:00] VITALS: BP 148/78
[2019-10-24 16:00] VITALS: BP 134/73
--- NOTE | 2019-10-24 17:00 | NUR ---
PT WITH OCCASIONAL CALL FOR PAIN MED OR NAUSEA MED. PT DID HAVE CT ABDOMEN TODAY, RESULTS REVIEWED WITH PT. PT AWARE OF POSSIBLE TRANSFER TO [facility] PER RENAL FAILURE. FAMILY HAS BEEN AT BEDSIDE THROUGHOUT THE DAY.
--- NOTE | 2019-10-24 18:58 | NUR ---
REPORT RECEIVED FROM NALLELY. PT RESTING IN BED. FAMILY AT BEDSIDE. NO S.S OF DISTRESS AT THIS TIME. WILL CONTINUE TO MONITOR.
[2019-10-24 19:55] VITALS: BP 156/76
--- NOTE | 2019-10-24 19:55 | NUR ---
PT RESTING IN BED. RESPIRATIONS SHALLOW ON RA. LUNGS SOUND CLEAR. PEDAL PULSES ARE STRONG. PT VOMITED 100CC OF DARK GREEN BILE. MD TO BE NOTIFIED. SAFETY PRECAUTIONS IN [place]. WILL CONTINUE TO MONITOR.
--- NOTE | 2019-10-25 00:12 | NUR ---
PT RESTING IN BED. NO S/S OF DISTRESS AT THIS TIME. WILL CONTINUE TO MONITOR.
[2019-10-25 04:55] LABS: ALBUMIN 2.2 g/dL (3.2-5.0); POTASSIUM 4.2 mmol/l (3.5-5.1)
[2019-10-25 05:07] LABS: HEMATOCRIT 31.8 % (37.0-47.0); HEMOGLOBIN 10.3 g/dl (12.0-16.0); IMMATURE GRANULOCYTES 4.9 % (0.0-5.0); MANUAL DIFFERENTIAL YES; MEAN CELL VOLUME 94.4 fL CALC (80.0-100.0); MEAN CORPUSCULAR HGB 30.6 pG CALC (26.0-32.0); MEAN CORPUSCULAR HGB CONC 32.4 g/dL CAL (32.0-36.0); PLATELET COUNT 212 thou/uL (130-400); RED BLOOD COUNT 3.37 mill/uL (4.20-5.60); RED CELL DISTRI WIDTH 16.8 % (11.5-15.5)
[2019-10-25 05:10] LABS: CREATININE 7.6 mg/dL (0.5-1.0)
[2019-10-25 05:44] LABS: BAND 25 % (0-8)
--- NOTE | 2019-10-25 07:05 | NUR ---
PT TRANSFERRED TO ICU4 FROM [facility]. PT DROWSY. ORIENTED TO SELF, PLACE, TIME AND SITUATION. BEDSIDE REPORT RECIEVED FROM NONA DRAPER. PLAN FOR SURGERY TODAY. PT AND FAMILY IMFORMED OF PLAN. WILL CONTINUE TO MONITOR
[2019-10-25 07:15] VITALS: BP 125/61
--- NOTE | 2019-10-25 07:20 | NUR ---
DR. LONG AT BEDSIDE TO ASSESS PT
[2019-10-25 07:30] VITALS: BP 116/64
[2019-10-25 07:45] VITALS: BP 141/72
[2019-10-25 08:00] VITALS: BP 112/60
[2019-10-25 08:15] VITALS: BP 107/60
[2019-10-25 08:30] VITALS: BP 114/51
--- NOTE | 2019-10-25 08:38 | NUR ---
PT TRANSFERRED TO [facility] VIA [facility] TRANSPORT [facility] ON STRETCHER. PT IN STABLE CONDITION. MEDICAL RECORDS AND ALL BELONGINGS WITH PATIENT. FAMILY TO FOLLOW PT. REPORT TO BE GIVEN.
--- NOTE | 2019-10-25 08:55 | NUR ---
REPORT GIVEN TO CECIL AT [facility]
[2020-02-27] MEDS ORDERED: LISINOPRIL10 MG PO (11:29)
== END 2019-10-25 08:38 | disposition short-term general hospital (02) | DRG 853 ==
PROVIDERS: Family Medicine; Internal Medicine; Internal Medicine Nephrology; Nurse Practitioner Family; Surgery; ADMIT Internal Medicine
PROC: 0DBN0ZZ Excision of Sigmoid Colon, Open Approach (ICD-10-PCS; principal; 2019-10-17)
PROC: 0WJP4ZZ Inspection of Gastrointestinal Tract, Percutaneous Endoscopic Approach (ICD-10-PCS; 2019-10-17)
PROC: 3E0T3BZ Introduction of Anesthetic Agent into Peripheral Nerves and Plexi, Percutaneous Approach (ICD-10-PCS; 2019-10-17)
PROC: 30233N1 Transfusion of Nonautologous Red Blood Cells into Peripheral Vein, Percutaneous Approach (ICD-10-PCS; 2019-10-18)
PROC: 30233N1 Transfusion of Nonautologous Red Blood Cells into Peripheral Vein, Percutaneous Approach (ICD-10-PCS; 2019-10-18)
DX: A40.8 Other streptococcal sepsis (principal); N17.0 Acute kidney failure with tubular necrosis; K57.20 Diverticulitis of large intestine with perforation and abscess without bleeding; N32.1 Vesicointestinal fistula; R18.8 Other ascites; D62 Acute posthemorrhagic anemia; E87.1 Hypo-osmolality and hyponatremia; E87.2 Acidosis; K91.31 Postprocedural partial intestinal obstruction; I10 Essential (primary) hypertension; E87.6 Hypokalemia; J44.9 Chronic obstructive pulmonary disease, unspecified; R07.9 Chest pain, unspecified; E83.42 Hypomagnesemia; E83.51 Hypocalcemia; T36.8X5A Adverse effect of other systemic antibiotics, initial encounter; I95.81 Postprocedural hypotension; T39.395A Adverse effect of other nonsteroidal anti-inflammatory drugs [NSAID], initial encounter; N99.0 Postprocedural (acute) (chronic) kidney failure; F17.200 Nicotine dependence, unspecified, uncomplicated; Y83.6 Removal of other organ (partial) (total) as the cause of abnormal reaction of the patient, or of later complication, without mention of misadventure at the time of the procedure
CPT/HCPCS: J0131; J1100; J2060; J2710; J3370; J3475; P9016; Q9967; S0164

== ENCOUNTER 2019-11-14 | Inpatient (IN) | payer SELFPAY ==
--- NOTE | 2019-11-14 15:20 | NUR ---
PT ARRIVED VIA EMT. PT IN BED WITH HOB AT 45 DEGREES. PT ORIENTED TO ROOM, CALL LIGHT, BED CONTROL. PT ALERT AND ORIENTED X 2 WITH CONFUSION. REPORT WAS CALLED IN AT 1238PM BY BONNY HECK AT [facility]. PT HAS A WOUND IN LOWER MID ABD REQUIRING WOUND VAC. PT ATTACHED TO WOUND VAC AT 125MMHG. PT HAS COLOSTOMY ON LEFT LOWER ABDOMEN. PT'S SKIN IS PEELING ON BILATERAL FINGERS AND HANDS WITH RED AND DARK RED COLOR. PT HAS RED RASH ON BILATERAL KNEES AND THIGHS. PT HAS SOME RED SPOTS ON BILATERAL FEET. PT IS ABLE TO MAKE SOME NEEDS KNOWN. DOCTOR ERIN, AND PHARMACITZA NOTIFIED OF MEDS. PT IS ON TPN WITH Q 6 HOURS ACCU CHECK.
[2019-11-14] MEDS ORDERED: [UNRECOGNIZED DRUG - MIXTURE] IV (16:44)
[2019-11-14] MEDS ORDERED: CATAPRES-T0.1 MG/24 TD (16:45)
[2019-11-14] MEDS ORDERED: CUBICIN500 MG IV (16:46)
[2019-11-14] MEDS ORDERED: BENADRYL 550 MG/1 M2 IV (16:47)
[2019-11-14] MEDS ORDERED: [UNRECOGNIZED DRUG - OTHER] IV ×2 (16:48→16:49)
[2019-11-14] MEDS ORDERED: DILAUDID2 MG/ML IV (16:50)
[2019-11-14] MEDS ORDERED: NOVOLIN R RELION SC (16:52)
[2019-11-14] MEDS ORDERED: LORAZEPAM2 MG/ML IV (16:54)
[2019-11-14] MEDS ORDERED: TOPROL XL100 MG PO (16:55)
[2019-11-14] MEDS ORDERED: MERREM500 MG IV (16:55)
[2019-11-14] MEDS ORDERED: ONDANSETRON4 MG/2 ML IV (16:56)
[2019-11-14] MEDS ORDERED: MAXZIDE-2537.5 MG/TA PO (16:58)
--- NOTE | 2019-11-14 17:00 | NUR ---
LATE ADMISSION R/T PATIENT'S INFORMATION NOT YET IN THE SYSTEM. REGISTRATION NOTIFIED X 3.
--- NOTE | 2019-11-14 17:51 | NUR ---
MED LIST FAXED TO [facility].PSYCHIATRIC ATTENDANT CALLED PHARMACY TO CONFIRM RECEIPT. PSYCHIATRIC ATTENDANT SPOKE TO JAMAL
[2019-11-14 19:00] VITALS: BP 174/92
[2019-11-14 19:30] VITALS: BP 192/94
--- NOTE | 2019-11-14 19:35 | NUR ---
APRESOLINE GIVE FOR BP OF 192/94. ZOFRAN ADMINISTERED FOR NAUSEA
[2019-11-14 21:10] VITALS: BP 175/77
--- NOTE | 2019-11-14 21:45 | NUR ---
PATIENT RESTING IN BED AT THIS TIME-AROUSABLE, CALLING OUT AT TIMES. PATIENT IS ORIENTED TO PERSON-REORIENTED TO PLACE, JUST TRANSFFERED BACK TO [facility] THIS AFTERNOON FROM [facility]. INSTRUCTED PATIENT ON USING CALL LIGHT. PATIENT WITH PUREWICK IN PLACEDRAINING YELLOW U RINE. PATIENT WITH WOUND VAC TO POST-OP ABD WOUND-DRESSING INTACT DRAINING SCANT AMT OF BROWNISH RED FLUID AT 125MMHG. TELE MONITOR IN PLACE. TPN INFUSING VIA DOUBLE LUMEN PICC TO LEFT UPPER ARM AT 89.6CC/HR. PATIENT WITH DRESSINGS TO BOTH HANDS AND FOREARM FROM SEVERE DERMATITIS. PATIENT MEDICATED FOR PAIN WITH DILAUDID 1MG IVP FOR ABD PAIN AND NICHOLE HAND PAIN. MEDICATED WITH BENEDRYL 25MG FOR SEVERE ITHCING. ATIVAN 0.5MG FOR SLEEP AND ANXIETY. PATIENT WITH LEFT ABD COLOSTOMY DRAINING SMALL AMT OF THICK BROWNISH GREEN STOOL. APPLIANCE INTACT. SAFETY PRECAUTIONS REINFORCED. CALL LIGHT IN REACH. WILL CONT TO MONITOR.
[2019-11-15 00:23] VITALS: BP 170/70
--- NOTE | 2019-11-15 01:20 | NUR ---
PATIENT RESTING IN BED-MEDICATED FOR HTN WITH APRESOLINE 10MG IVP. WILL CONT TO MONITOR.
[2019-11-15 03:38] VITALS: BP 130/66
--- NOTE | 2019-11-15 04:32 | NUR ---
PATIENT RESTING IN BED-AWAKE C/O 05/18 ABD PAIN AND PAIN TO BOTH HANDS-MEDICATED WITH DILAUDID 1MG IVP FOR PAIN. MEDICATED FOR ITCHING WITH BENEDRYL 25MG IVP. TPN/LIPIDS COMPLETED. NEW 500CC BAG OF D10W HUNG AND INFUSING AT 89.6CC/HR VIA LEFT UPPER ARM DOUBLE LUMEN PICC UNTIL PHARM ARRIVES THIS MORNING PER CARDINAL PHARM. WOUND VAC INTACT TO ABD DRAINING SMALL AMT OF THIN BROWNISH/RED FLUID. SETTING IS ON 125MMHG PER TRANSFER FROM [facility]. PUREWICK DRAINING SOME YELLOW URINE IN CANISTER BUT ALSO WITH SOME INCONT AND PERICARE WAS DONE. LINEN PADS CHANGED. SMALL AMT OF THICK LIQUID BROWNISH GREEN STOOL EMPTIED. APPLIANCE REMAINS INTACT. SMALL DRESSING TO LLABD CDI. WOUNDS TO BOTH HANDS WERE DRESSED. PHOTOS TAKEN AND IN CHANRT. CLEANSE BOTH HANDS WITH SALINE AND DRESSED WITH VASELINE GAUZE AND KERLIX-SECURED WITH SURIFLEX NETTING. BACK ALSO FLAKING-NOT WET, DRY AND FLAKEY AND EDUARDO. PATIENT WAS REPOSITONED IN BED. CALL LIGHT IN REACH. WILL CONT TO MONITOR.
--- NOTE | 2019-11-15 08:00 | NUR ---
SHIFT CHANGE REPORT, PT ALERT, ORIENTED TO PERSON AND PLACE ONLY, C/O ABD DISCOMFORT AND SEVERE THIRST, FLUIDS OFFERED, IVF INFUSING, CALL BERKOWITZ IN REACH.
[2019-11-15 08:21] VITALS: BP 126/59
[2019-11-15 08:47] LABS: HEMATOCRIT 26.3 % (37.0-47.0); IMMATURE GRANULOCYTES 1.4 % (0.0-5.0); MEAN CORPUSCULAR HGB 29.9 pG CALC (26.0-32.0); MEAN CORPUSCULAR HGB CONC 30.8 g/dL CAL (32.0-36.0); NEUT# 9.95 thou/uL (2.00-7.15); RED BLOOD COUNT 2.71 mill/uL (4.20-5.60); RED CELL DISTRI WIDTH 17.2 % (11.5-15.5)
[2019-11-15 08:48] LABS: HEMOGLOBIN 8.1 g/dl (12.0-16.0)
[2019-11-15 09:04] LABS: ALBUMIN 2.6 g/dL (3.2-5.0); BILIRUBIN, TOTAL 0.3 mg/dL (0.0-1.4); POTASSIUM 4.9 mmol/l (3.5-5.1)
[2019-11-15 09:20] LABS: CREATININE 1.6 mg/dL (0.5-1.0); TOTAL PROTEIN 6.4 g/dL (6.3-8.2)
--- NOTE | 2019-11-15 11:30 | NUR ---
MEDICAL TEAM ROUNDED, DR LONG CONSENTED TO PT'S REQUEST TO HAVE HER SIGNIFICANT OTHER VISIT AT THIS TIME, HE WAS INFORMED VIA PHONE THAT HE COULD VISIT WITH PT AND WAS GIVEN INSTRUCTION ON VISITING UNIT.
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
[2019-11-15 15:59] VITALS: BP 154/64
--- NOTE | 2019-11-15 16:00 | NUR ---
FOUND IN BE WITH BED ELEVATED TO HIGHEST POSITION, PT STATED SHE WANTED TO GET OOB, ASSISTED TO RECLINER, REORIENTED TO EVENTS, BODY ALARM PLACED, NO MORE HALUCINATIONS OBSERVED, MORE ORIENTED AND APPEARS STRONGER THAN SHE WAS EARLIER DURING TRANSFER.
--- NOTE | 2019-11-15 19:25 | NUR ---
REPORT FROM MARIETTA DRAPER. PT NOTED SITTING UP ON BSC AT THIS TIME. WOUND VAC NOTED TO MIDLINE INCISION. BOTH HANDS WRAPPED WITH GAUZES. PT ALERT AND ORIENTED. NO APPARENT DISTRESS NOTED. SKIN RED AND PEELING. TPN INFUSING TO MAURICE DOUBLE LUMEN. WILL ASSESS WHEN BACK IN BED. PT DENIES ANY CURRENT WANTS OR NEEDS. CALL LIGHT WITHIN REACH. WILL CONTINUE TO MONITOR.
[2019-11-15 19:26] VITALS: BP 112/62
--- NOTE | 2019-11-15 20:38 | NUR ---
PT MEDICATED FOR PAIN AND NAUSEA. PT ASSISTED BACK TO BED PER REQUEST. COLOSTOMY BAG NOTED WITH BROWN WATERY STOOL. KCI WOUND VAC TO ABD MIDLINE INCISION SUCTION AT 125MMHG. TPN INFUSING THROUGH MAURICE DOUBLE LUMEN. NO APPARENT DISTRESS NOTED. CALL LIGHT WITHIN REACH. WILL CONTINUE TO MONITOR.
--- NOTE | 2019-11-15 22:24 | NUR ---
PT MEDICATED FOR ANXIETY AT THIS TIME. PT YELLING OUT HELP AND RESTLESS, WHEN ASKED WHAT PT NEEDS HELP WITH PT STATES "WHAT EVER YOU CAN HELP ME WITH". EDUCATED PT CORPORATE VP ADVERTISING & ONLINE LIGHT USE FOR ALL NEEDS. PT VERBALIZED UNDERSTANDING. PT DENIES ANY CURRENT WANTS OR NEEDS. CALL LIGHT WITHI NREACH. WILL CONTINUE TO MONITOR.
--- NOTE | 2019-11-16 02:08 | NUR ---
PT RESTING IN BED WITH EYES CLOSED. NO APPARENT DISTRESS NOTED. CALL LIGHT WITHIN REACH. WILL CONTINUE TO MONITOR.
[2019-11-16 04:00] VITALS: BP 153/79
--- NOTE | 2019-11-16 04:03 | NUR ---
PT YELLING HELP. PT FOUND LAYING SIDE WAYS IN BED. PURKWIK OUT OF PLACE, PT INCONTINENT OF URINE. COLOSTOMY BAG LEAKING. COMPLETE BED BATH AND LINEN CHANGE PROVIDED. PT MEDICATED FOR ANXIETY AND POPSICLE PROVIDED UPON REQUEST. NO APPARENT DISTRESS NOTED. PURWIK PUT BACK IN PLACE. TPN CONTINUES TO INFUSE. WOUND VAC AND DRESSING CDI. CALL LIGHT WITHIN REACH. WILL CONTINUE TO MONITOR.
[2019-11-16 05:05] LABS: HEMATOCRIT 28.7 % (37.0-47.0); HEMOGLOBIN 8.9 g/dl (12.0-16.0); MEAN CELL VOLUME 97.6 fL CALC (80.0-100.0); MEAN CORPUSCULAR HGB 30.3 pG CALC (26.0-32.0); RED BLOOD COUNT 2.94 mill/uL (4.20-5.60); RED CELL DISTRI WIDTH 16.8 % (11.5-15.5)
[2019-11-16 05:22] LABS: ALBUMIN 2.8 g/dL (3.2-5.0); BILIRUBIN, TOTAL 0.3 mg/dL (0.0-1.4); CREATININE 1.5 mg/dL (0.5-1.0); POTASSIUM 4.7 mmol/l (3.5-5.1); TOTAL PROTEIN 6.7 g/dL (6.3-8.2)
[2019-11-16 07:45] VITALS: BP 135/72
--- NOTE | 2019-11-16 09:00 | NUR ---
PT AWAKE, ALERT, CONFUSED AT TIMES, HALLUCINATING AT TIMES. PT CAN BE REORIENTED TO REALITY USUALLY. PT ASSISTED OOB INTO CHAIR AT BEDSIDE.
[2019-11-16 14:49] VITALS: BP 163/99
--- NOTE | 2019-11-16 15:08 | NUR ---
PT WITH INCREASING CONFUSION SINCE THIS MORNING, INSISTS THAT SHE NEEDS TO GO HOME RIGHT NOW. PT WILL SAY THINGS AND THEN APOLOGIZE SINCE THEY WERE ONLY IN HER DREAM. PT BACK AND FORTH TO CHAIR AND BED, NOT ABLE TO STAY LONG IN EITHER PLACE FOR LONG.
--- NOTE | 2019-11-16 19:15 | NUR ---
PT BELIEVES THAT SHE WILL GO HOME TOMORROW, SUCH SHE HAS MADE PHONE CALLS FOR THINGS SHE BELIEVES SHE WILL NEED AT HOME. COLOSTOMY EMPTIED. IV ABX CONTINUE. NO DISTRESS. REMAINS CONFUSED.
--- NOTE | 2019-11-16 19:38 | NUR ---
REPORT FROM NALLELY DRAPER. PT RESTING IN BED. ALERT AND ORIENTED. NO APPARENT DISTRESS NOTED. SKIN RED AND PEELING ON HANDS. WOUND VAC NOTED TO MIDLINE INCISION. PURKWIK IN PLACE. COLOSTOMY NOTED WITH WATER BROWN STOOL IN BAG. MAURICE DOUBLE LUMEN. PT DENIES ANY PAIN OR DISCOMFORT. PT VERY RESTLESS AND ANXIOUS. MEDICATED WITH ATIVAN AT THIS TIME. CALL LIGHT WITHIN REACH. WILL CONTINUE TO MONITOR.
--- NOTE | 2019-11-16 19:38 | NUR ---
REPORT FROM NALLELY DRAPER. PT SITTING UP IN BED. ALERT AND ORIENTED. NO APPARENT DISTRESS NOTED. SKIN RED AND PEELING ON HANDS. WOUND VAC NOTED TO MIDLINE INCISION. PURKWIK IN PLACE. COLOSTOMY NOTED WITH WATER BROWN STOOL IN BAG. MAURICE DOUBLE LUMEN. PT DENIES ANY PAIN OR DISCOMFORT. PT VERY RESTLESS AND ANXIOUS. MEDICATED WITH ATIVAN AT THIS TIME. CALL LIGHT WITHIN REACH. WILL CONTINUE TO MONITOR.
[2019-11-16 19:50] VITALS: BP 130/68
--- NOTE | 2019-11-16 22:08 | NUR ---
PT C/O GENERALIZED PAIN 6-10, PT MEDICATED AT THIS TIME FOR PAIN AND NAUSEA. WOUND VAC WITH ERROR OF OCCLUSION. DRESSING REINFORCED, AND NEW CANISTER APPLIED. WOUND VAC NOW APPEARS TO BE FUNCTIONING PROPERLY AT 125MMHG. EMESIS BASIN PROVIDED AND POPSICLE PROVIDED UPON REQUEST. CALL LIGHT WITHIN REACH. WILL CONTINUE TO MONITOR.
--- NOTE | 2019-11-17 01:28 | NUR ---
REPORT FROM NALLELY DRAPER. PT RESTING IN BED. ALERT AND ORIENTED. NO APPARENT DISTRESS NOTED. SKIN RED AND PEELING ON HANDS. WOUND VAC NOTED TO MIDLINE INCISION. PURKWIK IN PLACE. COLOSTOMY NOTED WITH WATER BROWN STOOL IN BAG. MAURICE DOUBLE LUMEN. PT DENIES ANY CURRENT WANTS OR NEEDS. CALL LIGHT WITHIN REACH. WILL CONTINUE TO MONITOR.
--- NOTE | 2019-11-17 01:47 | NUR ---
PT RESTING IN BED WITH EYES CLOSED. NO APPARENT DISTRESS NOTED. CALL LIGHT WITHIN REACH. WILL CONTINUE TO MONITOR.
[2019-11-17 03:36] VITALS: BP 142/79
[2019-11-17 05:38] LABS: HEMATOCRIT 26.2 % (37.0-47.0); HEMOGLOBIN 7.8 g/dl (12.0-16.0); MEAN CELL VOLUME 98.1 fL CALC (80.0-100.0); MEAN CORPUSCULAR HGB 29.2 pG CALC (26.0-32.0); MEAN CORPUSCULAR HGB CONC 29.8 g/dL CAL (32.0-36.0); NEUT# 10.03 thou/uL (2.00-7.15); RED BLOOD COUNT 2.67 mill/uL (4.20-5.60); RED CELL DISTRI WIDTH 16.6 % (11.5-15.5)
[2019-11-17 05:56] LABS: ALBUMIN 2.6 g/dL (3.2-5.0); BILIRUBIN, TOTAL 0.3 mg/dL (0.0-1.4); CREATININE 1.3 mg/dL (0.5-1.0); POTASSIUM 4.5 mmol/l (3.5-5.1); TOTAL PROTEIN 6.4 g/dL (6.3-8.2)
--- NOTE | 2019-11-17 06:13 | NUR ---
PT FOUND SITTING ON EDGE OF BED. PT STATES SHE HAD TO USE BATHROOM. PT RE-EDUCATED ON PURWIK. PT REMOVED PURWIK AND VOIDED DOWN SIDE OF BED ON FLOOR. ASSISTED PT BACK TO BED. PERICARE PROVIDED AND LINENS CHANGED. PURWIK PUT BACK IN PLACE. CALL LIGHT WITHIN REACH. WILL CONTINUE TO MONITOR.
[2019-11-17 08:25] VITALS: BP 109/66
--- NOTE | 2019-11-17 08:25 | NUR ---
ASSESSMENT IS COMPLETED: IV SITE IS FREE FROM REDNESS OR EDEMA. HR IS REG,PULSES ARE STRONG X4, ABD IS SOFT WITH ACTIV EBS. BREATH SOUNDS ARE CLEAR,BILATERALLY. DRESSING ON ABD IS CDI. ALSO COLOSTOMY BAG IS DRAINING BROWN SOFT STOOL. CONTINUE TO OBSERVE AND MONITOR.
--- NOTE | 2019-11-17 10:45 | NUR ---
DR EMERY IN TO SEE PT AND CHANGED THE WOUND VAC. PT TOLERATED WELL. WANTING TO GO HOME. WAS INFORMED TO STAY OVER THE WEEKEND AND MAY GO HOME ON WEDNESDAY.
--- NOTE | 2019-11-17 12:15 | NUR ---
PT HAS BEEN IN THE CHAIR AND BACK INTO BED. C/O WANTING TO GO HOME./ IV SITE IS FREE FROM REDNESS OR EDEMA.
--- NOTE | 2019-11-17 14:04 | NUR ---
PT WAS FOUND SITTING ON THE FLOOR. NO DISTRESS NOTED.
[2019-11-17 14:40] VITALS: BP 135/67
--- NOTE | 2019-11-17 16:15 | NUR ---
PT IS RELAXING IN BED WITH NO DISTRESS NOTED. IV SITE IS FREE FROM REDNESS OR EDEMA.
--- NOTE | 2019-11-17 17:09 | NUR ---
PT HAS GOTTEN UP AND SAT HERSELF IN THE CHAIR, HAS BEEN ASKED SEVERAL TIMES TO CALL ON THE CALL BERKOWITZ.
--- NOTE | 2019-11-17 18:56 | NUR ---
PT C/O NAUSEA WAS ALREADY GIVEN ZOFRAN PT STATES" ITS NOT WORKING. VOMITED CLEAR LIQUID.
--- NOTE | 2019-11-17 19:05 | NUR ---
REPORT FROM TRISH MOON. PT SITTING UP IN BED. PT C/O NAUSEA, MEDICATED PRIOR TO SHIFT, GINGERALE PROVIDED TO PT. WOUND VAC IN PLACE, FUNCTIONING PROPERLY AT 125MMHG CONTINOUS SUCTION. COLOSTOMY INTACT, DRAINING WATERY BROWN STOOL. DOUBLE LUMEN PICC NOTED TO OSMAN RICHARDS. DISCUSSED POC. PT VERBALIZED UNDERSTANDING. PT WEARING HOME CLOTHES UNDER GOWN, REFUSED TO REMOVE THEM AT THIS TIME. PURWIK IN PLACE. CALL LIGHT WITHIN REACH AND BED ALARM FOR SAFETY. WILL CONTINUE TO MONITOR.
[2019-11-17 19:21] VITALS: BP 136/79
--- NOTE | 2019-11-18 00:23 | NUR ---
PT MEDICATED FOR NAUSEA AT THIS TIME. GINGERALE PROVIDED UPON REQUEST. PT HAS EMESIS BASIN IN BED. CALL LIGHT WITHIN REACH. WILL CONTINUE TO MONITOR
[2019-11-18 04:18] VITALS: BP 150/82
--- NOTE | 2019-11-18 04:26 | NUR ---
COMPLETE BED BATH AND LINEN CHANGE PROVIDED. PT MEDICATED FOR NAUSEA AT THIS TIME. WOUND VAC @ 125MMHG. COLOSTOMY NOTED WITH LIQUID BROWN STOOL IN BAG. CALL LIGHT WITHIN REACH. WILL CONTINUE TO MONITOR.
--- NOTE | 2019-11-18 08:15 | NUR ---
ASSESSMENT IS COMPLETED:IV SITE IS FREE FROM REDNESS OR EDEMA. HR IS REG, PULSES ARE STRONG X4, ABD IS SOFT WITH ACTIVE BS. BREATH SOUNDS ARE CLEAR,BILATERALLY. NO C/O SOB,DRESSING INTACT WITH WOUND VAC. COLOSTOMY BAG IS IN PLACE. CONTINUE TO OSBERVE AND MONITOR.
[2019-11-18 09:55] LABS: HEMATOCRIT 27.2 % (37.0-47.0); HEMOGLOBIN 8.3 g/dl (12.0-16.0); MEAN CELL VOLUME 96.8 fL CALC (80.0-100.0); MEAN CORPUSCULAR HGB 29.5 pG CALC (26.0-32.0); MEAN CORPUSCULAR HGB CONC 30.5 g/dL CAL (32.0-36.0); RED BLOOD COUNT 2.81 mill/uL (4.20-5.60); RED CELL DISTRI WIDTH 16.1 % (11.5-15.5)
--- NOTE | 2019-11-18 10:00 | NUR ---
FAMILY WAS GIVEN PERMISSION TO COME AND SEE PT. PER DR LONG/
[2019-11-18 10:17] LABS: CREATININE 1.2 mg/dL (0.5-1.0); POTASSIUM 3.9 mmol/l (3.5-5.1)
--- NOTE | 2019-11-18 12:30 | NUR ---
PT HAS BEEN IN THE CHAIR. NO DISTRESS NOTED. IV SITE IS FREE FROM REDNESS OR EDEMA. DRESSING ON ABD IS CDI.
--- NOTE | 2019-11-18 12:45 | NUR ---
COLOSTOMY BAG DECIDED TO LEAK . WAS CHANGED WITH 70MM SIZE WAFER. USED THE SKIN PREP. PT SAYS " IT PATEL A LITTLE" CLEANED PT UP CONTUINUE TO OBSERVE AND MONITOR.
--- NOTE | 2019-11-18 14:00 | NUR ---
DR EMERY IN TO VISIT WITH PT. DID TELL HER SHE CAN WALK AROUND . CONTINUE TO OBSERVE AND MONITOR.
[2019-11-18 16:14] VITALS: BP 110/67
--- NOTE | 2019-11-18 16:15 | NUR ---
PT HAS BEEN RELAXING IN BED WITH NO DISTRESS NOTED. IV SITE IS FREE FROM REDNESS OR EDEMA
--- NOTE | 2019-11-18 18:35 | NUR ---
PT REQUESTED A DRY DRESSING ON HER HANDS TO PROTECT THE "PINK SKIN". COVERED WITH FUAD WRAP.
[2019-11-18 19:01] VITALS: BP 155/81
--- NOTE | 2019-11-18 20:00 | NUR ---
PATIENT SITTING UP IN RECLINER AT THIS TIME-AWAKE ALERT AND ORIENTEDX3. PATIENT COLOSTOMY APPLIANCE INTACT-DRAINING BROWN LIQUID STOOL. ABD DRESSING INTACT TO WOUND VAC AT 125MMHG IN PLACE. SMALL AMT OF BROWNISH FLUID NOTED IN TUBING. ABD IS SOFT WITH BS+. ENCOURAGED USE OF IS Q1H WHILE AWAKE-NEEDS ENCOURAGEMENT. HANDS CONT TO PEEL-USING BARRIER CREAM AT THIS TIME TO BOTH HANDS. C/O ITCHING-MEDICATED WITH BENEDRYL 25MG IVP FOR ITCHING. MEDICATED WITH ATIVAN 0.5MG IVP FOR SLEEP AND WITH LORTAB FOR PAIN. DOUBLE LUMEN PICC TO LEFT US INTACT. SAFETY PRECAUTIONS REINFORCED. CALL LIGHT IN REACH. WILL CONT TO MONITOR.
--- NOTE | 2019-11-19 | NUR ---
APPEARS SLEEPING AT THIS TIME WITH EYES CLOSED. RESP ARE EVEN AND UNLABORED. CALL LIGHT IN REACH. WILL CONT TO MONITOR.
[2019-11-19 04:15] VITALS: BP 149/86
--- NOTE | 2019-11-19 04:54 | NUR ---
PATIENT APPEARS SLEEPING AT THIS TIME WITH EYES CLOSED. RESPS ARE EVEN AND UNLABORED. ABD DRESSING INTACT AND TO WOUND VAC AT 125MMHG ORDERED. DOUBLE LUMEN PICC TO LEFT UPPER ARM INTACT. COLOSTOMY APPLIANCE INTACT TO LEFT ABD. CALL LIGHT IN REACH. WILL CONT TO MONITOR.
--- NOTE | 2019-11-19 07:56 | NUR ---
PT IS RESTING IN BED WITH EYES CLOSED.
[2019-11-19 08:28] VITALS: BP 125/71
--- NOTE | 2019-11-19 08:28 | NUR ---
ASSESSMENT IS COMPLETED: IV SITE IS FREE FROM REDNESS OR EDEMA. HR IS REG,PULSES ARE STRONG X4, ABD IS SOFT WITH ACTIVE BS. BREATH SOUNDS ARE CLEAR, BILATERALLY, WOUND VAC IN PLACE., COLOSTOMY BAG IS DRAINING LIQUID STOOL. CONTINUE TO OBSERVE AND MONITOR.
--- NOTE | 2019-11-19 10:45 | NUR ---
DR EMERY IN TO VISIT WITH PT.
--- NOTE | 2019-11-19 12:15 | NUR ---
PT IS RELAXING IN BED WITH NO DISTRESS NOTD. IV SITE IS FREE FROM REDNESS OR EDEMA.
--- NOTE | 2019-11-19 13:15 | NUR ---
EMPTIED COLOSTOMY BAG WITH LOOSE BROWN STOOL. PT IS IN BED CONTINUE TO OSBERVE AND MONITOR.
--- NOTE | 2019-11-19 16:15 | NUR ---
PT IS RELAXING IN THE CHAIR., WITH NO DISTRESS NOTED.
[2019-11-19 16:59] VITALS: BP 133/77
[2019-11-19 18:41] VITALS: BP 130/56
--- NOTE | 2019-11-19 20:06 | NUR ---
PATIENT SITTING UP IN RECLINER AT THIS TIME-AWAKE ALERT AND ORIENTEDX3. PATIENT C/O NAUSEA-MEDICATED WITH ZOFRAN VIA LEFT UPPER ARM PICC ORDERED FOR NAUSEA. PATIENT SOME INAPPROPRIATE COMMENTS REGUARDING COLOSTOMY-EMPTIED FOR 200CC OF THICK BROWN STOOL. ENCOURAGED PATIENT INVOLVEMENT WITH COLOSTOMY CARE. STATES THAT "SHE HAS SOME PEOPLE TO HELP HER". ABD WOUND DRESSING INTACT AND TO WOUND VAC AT 125MMHG DRAINING REDDISH/BROWN FLUID. ABD IS SOFT WITH BS+.LUNGS CLEAR-ENCOURAGED USE OF IS Q1H W/A. NEEDS REINFORCEMENT. HAND ARE STILL PEELING BUT THEY ARE IMPROVING. USE BARRIER CREAM WHICH PATIENT STATES IS SOOTHING. NEW PINK TISSUE PRESENT WITH NUMEROUS SCABBED AREAS SCALEHOUSE ATTENDANT. SAFETY PRECAUTIONS REINFORCED. CALL LIGHT IN REACH. WILL CONT TO MONITOR.
--- NOTE | 2019-11-20 00:17 | NUR ---
PATIENT APPEARS SLEEPING AT THIS TIME WITH EYES CLOSED.RESPS ARE EVEN AND UNLBORED. CALL LIGHT IN REACH. WILL CONT TO MONITOR.
--- NOTE | 2019-11-20 04:00 | NUR ---
APPEARS SLEEPING AT THIS TIME WITH EYES CLOSED AND RESPS EVEN AND UNLABORED. WOUND VAC TO 125MMHG ORDERED DRAINING SMALL AMT OF REDISH BROWN FLUID. COLOSTOMY APPLIANCE INTACT. CALL LIGHT IN REACH. WILL CONT TO MONITOR.
[2019-11-20 04:03] VITALS: BP 127/38
[2019-11-20 05:18] LABS: HEMATOCRIT 26.2 % (37.0-47.0); HEMOGLOBIN 8.1 g/dl (12.0-16.0); IMMATURE GRANULOCYTES 0.5 % (0.0-5.0); MEAN CORPUSCULAR HGB 29.7 pG CALC (26.0-32.0); MEAN CORPUSCULAR HGB CONC 30.9 g/dL CAL (32.0-36.0); NEUT# 12.24 thou/uL (2.00-7.15); RED BLOOD COUNT 2.73 mill/uL (4.20-5.60); RED CELL DISTRI WIDTH 15.9 % (11.5-15.5)
[2019-11-20 05:33] LABS: ANION GAP 11 (6-22 (CALC)); BUN 24 mg/dL (7-17); BUN/CREATININE RATIO 23 (12-20 (CALC)); CARBON DIOXIDE 23 mmol/l (22-30); CHLORIDE 107 mmol/l (95-108); GFR 57 ML/MIN (>=60 (CALC)); GFR FOR AFR.AMER. > 60 ML/MIN (>=60 (CALC)); SODIUM 136 mmol/l (137-146)
[2019-11-20 08:00] VITALS: BP 123/57
--- NOTE | 2019-11-20 09:00 | NUR ---
PT IS AWAKE, ALERT, ORIENTED TO SELF AND PLACE, SOMETIMES CONFUSED. LUNGS CLEAR, RA. ABDOMEN SOFT, TENDER, COLOSTOMY FUNCTIONING PROPERLY. WOUND VAC NOTED TO ABDOMINAL WOUND. PT WAITS FOR DR EMERY FOR PROBABLE DISCHARGE TO HOME TODAY.
[2019-11-20] MEDS ORDERED: AMOX/K CLAV875 M1 PO (11:35)
[2019-11-20] MEDS ORDERED: DIFLUCAN100 MG PO (11:37)
[2019-11-20] MEDS ORDERED: PERCOCET 5/325M1 TAB PO (11:39)
[2019-11-20] MEDS ORDERED: XANAX0.25 MG PO (11:40)
--- NOTE | 2019-11-20 13:00 | NUR ---
PT HAS BEEN DISCHARGED TO HOME. DOUBLE LUMEN IV WAS REMOVED. WOUND VAC TO ABDOMINAL WOUND WAS TAKEN OFF AND REPLACED WITH WET TO DRY DRESSING. COLOSTOMY POUCH REPLACED. PT VERBALIZED UNDERSTANDING OF DC INSTRUCTIONS, TAKEN TO LOBBY IN WHEELCHAIR. PT LEAVES [facility] IN STABLE CONDITION.
--- NOTE | 2019-11-21 10:33 | NUR ---
[facility] FOR [facility] PT. SPOKE TO [facility] AND WAS GIVEN CONFIRMATION NUMBER [id number] AND WAS TOLD THE REP WILL CALL WHEN ON ITS WAY TO THE FACILITY.
[2020-02-27] MEDS ORDERED: LISINOPRIL10 MG PO (11:29)
== END 2019-11-20 13:00 | DRG 862 ==
PROVIDERS: Nurse Practitioner Family; ADMIT Internal Medicine
PROC: 3E0336Z Introduction of Nutritional Substance into Peripheral Vein, Percutaneous Approach (ICD-10-PCS; principal; 2019-11-14)
DX: T81.43XA Infection following a procedure, organ and space surgical site, initial encounter (principal); K65.1 Peritoneal abscess; A41.9 Sepsis, unspecified organism; N17.0 Acute kidney failure with tubular necrosis; R65.20 Severe sepsis without septic shock; I10 Essential (primary) hypertension; D50.0 Iron deficiency anemia secondary to blood loss (chronic); D64.89 Other specified anemias; R21 Rash and other nonspecific skin eruption; K14.0 Glossitis; F17.200 Nicotine dependence, unspecified, uncomplicated; Y83.2 Surgical operation with anastomosis, bypass or graft as the cause of abnormal reaction of the patient, or of later complication, without mention of misadventure at the time of the procedure; Z93.3 Colostomy status
CPT/HCPCS: J2060; J2185; J2248

== ENCOUNTER 2019-12-23 20:37 | Emergency (ER) | payer SELFPAY ==
[~2019-12-23 20:37] MED LIST changes: +AMOX/K CLAV875 M1 PO; +BENADRYL 550 MG/1 M2 IV; +CATAPRES-T0.1 MG/24 TD; +CUBICIN500 MG IV; +DIFLUCAN100 MG PO; +DILAUDID2 MG/ML IV; +LORAZEPAM2 MG/ML IV; +MAXZIDE-2537.5 MG/TA PO; +MERREM500 MG IV; +NOVOLIN R RELION SC; +ONDANSETRON4 MG/2 ML IV; +PERCOCET 5/325M1 TAB PO; +TOPROL XL100 MG PO; +XANAX0.25 MG PO; +[UNRECOGNIZED DRUG - MIXTURE] IV; +[UNRECOGNIZED DRUG - OTHER] IV
[2019-12-23 23:34] LABS: HEMATOCRIT 32.6 % (37.0-47.0); HEMOGLOBIN 10.5 g/dl (12.0-16.0); IMMATURE GRANULOCYTES 0.8 % (0.0-5.0); MEAN CELL VOLUME 92.6 fL CALC (80.0-100.0); MEAN CORPUSCULAR HGB 29.8 pG CALC (26.0-32.0); MEAN CORPUSCULAR HGB CONC 32.2 g/dL CAL (32.0-36.0); NEUT# 17.65 thou/uL (2.00-7.15); RED BLOOD COUNT 3.52 mill/uL (4.20-5.60); RED CELL DISTRI WIDTH 13.7 % (11.5-15.5)
[2019-12-23 23:36] LABS: URINE BILIRUBIN - DIPSTICK NEGATIVE (NEGATIVE); URINE BLOOD DIPSTICK NEGATIVE (NEGATIVE); URINE COLOR YELLOW; URINE GLUCOSE - DIPSTICK NEGATIVE (NEGATIVE); URINE KETONE NEGATIVE (NEGATIVE); URINE LEUK ESTERASE NEGATIVE (NEGATIVE); URINE NITRITE - DIPSTICK NEGATIVE (Negative); URINE PROTEIN - DIPSTICK NEGATIVE (NEG-TRACE); URINE SPECIFIC GRAVITY >=1.030; URINE UROBILINOGEN - DIPSTICK 0.2 E.U./dL (0.2)
[2019-12-23 23:53] LABS: ALBUMIN 3.4 g/dL (3.2-5.0); ALKALINE PHOSPHATASE 95 u/l (38-126); ANION GAP 11 (6-22 (CALC)); BILIRUBIN, TOTAL 0.3 mg/dL (0.0-1.4); BUN 12 mg/dL (7-17); BUN/CREATININE RATIO 12 (12-20 (CALC)); CARBON DIOXIDE 27 mmol/l (22-30); CHLORIDE 100 mmol/l (95-108); CREATININE 1.1 mg/dL (0.5-1.0); GFR 51 ML/MIN (>=60 (CALC)); GFR FOR AFR.AMER. > 60 ML/MIN (>=60 (CALC)); INTERNATIONAL NORMALIZED RATIO 0.9 RATIO (0.7-1.3); POTASSIUM 3.8 mmol/l (3.5-5.1); PROTHROMBIN TIME 9.9 SECONDS (9.0-12.5); SGOT/AST 17 u/l (14-36); SODIUM 134 mmol/l (137-146); TOTAL PROTEIN 6.8 g/dL (6.3-8.2)
[2019-12-24 01:55] VITALS: BP 146/65
[2020-02-27] MEDS ORDERED: LISINOPRIL10 MG PO (11:29)
== END 2019-12-24 01:55 | disposition short-term general hospital (02) | DRG 536 ==
LOC: ED 20:37
PROVIDERS: Emergency Medicine
PROC: 0T9B70Z Drainage of Bladder with Drainage Device, Via Natural or Artificial Opening (ICD-10-PCS; principal; 2019-12-23)
DX: S72.002A Fracture of unspecified part of neck of left femur, initial encounter for closed fracture (principal); I10 Essential (primary) hypertension; F17.210 Nicotine dependence, cigarettes, uncomplicated; W18.30XA Fall on same level, unspecified, initial encounter; Y92.007 Garden or yard of unspecified non-institutional (private) residence as the place of occurrence of the external cause

== ENCOUNTER 2020-01-31 11:59 | Emergency (ER) | payer SELFPAY ==
[~2020-01-31] VITALS: Ht 162.6 cm; Wt 65.0 kg
[2020-01-31 13:10] LABS: HEMATOCRIT 41.4 % (37.0-47.0); HEMOGLOBIN 13.3 g/dl (12.0-16.0); IMMATURE GRANULOCYTES 0.3 % (0.0-5.0); MEAN CELL VOLUME 91.6 fL CALC (80.0-100.0); MEAN CORPUSCULAR HGB 29.4 pG CALC (26.0-32.0); MEAN CORPUSCULAR HGB CONC 32.1 g/dL CAL (32.0-36.0); NEUT# 7.5 thou/uL (2.00-7.15); RED BLOOD COUNT 4.52 mill/uL (4.20-5.60); RED CELL DISTRI WIDTH 13.3 % (11.5-15.5)
[2020-01-31 13:28] LABS: ALKALINE PHOSPHATASE 90 u/l (38-126); ANION GAP 14 (6-22 (CALC)); BUN 13 mg/dL (7-17); BUN/CREATININE RATIO 18 (12-20 (CALC)); CARBON DIOXIDE 23 mmol/l (22-30); CHLORIDE 104 mmol/l (95-108); CREATININE 0.7 mg/dL (0.5-1.0); GFR > 60 ML/MIN (>=60 (CALC)); GFR FOR AFR.AMER. > 60 ML/MIN (>=60 (CALC)); POTASSIUM 4.3 mmol/l (3.5-5.1); SODIUM 136 mmol/l (137-146)
[2020-01-31 13:33] LABS: ALBUMIN 4.2 g/dL (3.2-5.0); BILIRUBIN, TOTAL 0.6 mg/dL (0.0-1.4); SGOT/AST 32 u/l (14-36); TOTAL PROTEIN 8.3 g/dL (6.3-8.2)
[2020-01-31 14:11] LABS: URINE BILIRUBIN - DIPSTICK NEGATIVE (NEGATIVE); URINE BLOOD DIPSTICK NEGATIVE (NEGATIVE); URINE COLOR YELLOW; URINE GLUCOSE - DIPSTICK NEGATIVE (NEGATIVE); URINE KETONE NEGATIVE (NEGATIVE); URINE LEUK ESTERASE NEGATIVE (NEGATIVE); URINE NITRITE - DIPSTICK NEGATIVE (Negative); URINE PROTEIN - DIPSTICK TRACE mg/dL (NEG-TRACE); URINE UROBILINOGEN - DIPSTICK 0.2 E.U./dL (0.2)
[2020-01-31 15:08] VITALS: BP 136/74
[2020-02-27] MEDS ORDERED: LISINOPRIL10 MG PO (11:29)
== END 2020-01-31 15:08 | disposition home or self-care (01) | DRG 392 ==
LOC: ED 11:59
PROVIDERS: Family Medicine
DX: R10.84 Generalized abdominal pain (principal); R53.83 Other fatigue; I10 Essential (primary) hypertension; F17.210 Nicotine dependence, cigarettes, uncomplicated; Z93.3 Colostomy status; Z20.828 Contact with and (suspected) exposure to other viral communicable diseases
CPT/HCPCS: Q9967

== ENCOUNTER 2020-03-05 07:08 | Inpatient (IN) | payer SELFPAY ==
[~2020-03-05] VITALS: Ht 162.6 cm; Wt 68.0 kg
[2020-03-05] VITALS (9 sets, daily range): BP systolic 109–153; BP diastolic 38–77
[~2020-03-05 07:08] MED LIST changes: +LISINOPRIL10 MG PO
--- NOTE | 2020-03-05 14:43 | NUR ---
PT ARRIVED TO UNIT VIA BED WITH OR STAFF; DROWSY AND TALKING INCOMPREHENSIBLY. BEDSIDE REPORT RECEIVED. C/O LABOR LIKE ABDOMINAL PAIN. RESTING SEMI FOWLERS WITH ABDOMINAL BINDER IN PLACE. OXYGEN 2L VIA NC; LR INFUSING ON ARRIVAL; ADJUSTED TO 150 ML/HR PER ORDER; IV SITE APPEARS HEALTHY. VSS. SCDS APPLIED. IS AT BEDSIDE; PT NOT READY FOR EDUCATION AT THIS TIME. ABLE TO STATE NAME AND . HAILE TO BEDSIDE DRAINAGE; WILL MONITOR OUTPUT. SAFETY MEASURES IN PLACE. CALL LIGHT WITHIN REACH.
--- NOTE | 2020-03-05 18:39 | NUR ---
PT RESTING IN BED WITH NO DISTRESS. PAIN AND NAUSEA ADDRESSED WITH PRN MEDICATIONS. BETHANY ALEXANDRE DRAIN EMPTIED WITH A TOTAL OUTPUT OF 130 ML. PT IS ALERT AND ORIENTED X3.ABDOMEN IS STILL VERY TENDER. ABDOMINAL BINDER IS IN PLACE. IV FLUIDS RUNNING WITH ANTIBIOTICS. IV SITE APPEARS TO BE HEALTHY. CATHETER SECURE AND DRINING TO GRAVITY.BED ALARM IS ON; CALL BERKOWITZ IS WITHIN REACH. PT STATES UNDERSTANDING TO CALL FOR ANY NEEDS.
--- NOTE | 2020-03-05 20:48 | NUR ---
PT. SITTING UP IN BED WITH NO RESP. DISTRESS NOTED. EDUCATED ON I/S AND ABLE TO PULL 1500. IV SITE PATENT AND ORDERED IVF STARTED. PT. C/O ABD PAIN 10/10 AND MEDICATED WITH ORDERED PRN DILAUDID; WILL REASSESS. SURGICAL DRESSINGS INTACT TO ABDOMEN, DARKENED AREA NOTED TO LOWER MIDDLE OF DRESSING AND OUTLINED; WILL CONTINUE TO MONITOR. ABDOMINAL BINDER INTACT. RLQ SHANNAN DRAIN INTACT AND EMPTIED OF 30MLS OF BLOODY DRAINAGE. SCD'S IN PLACE TO BLE. EDUCATED ON ICE CHIP DIET ONLY WITH SIPS OF WATER ONLY WITH MEDICATIONS. INFORMED PT. OF NEED FOR NF MED ON EMAR; VERBALIZES UNDERSTANDING. ENCOURAGED TO COUGH AND DEEP BREATHE. CALL LIGHT IS IN REACH. WILL CONTINUE TO MONITOR.
--- NOTE | 2020-03-06 00:03 | NUR ---
SURGICAL DRESSING ASSESSED AND REMAINS WITH OUTLINE THE SAME; NO INCREASE IN DRAINAGE NOTED; ABD BINDER IN PLACE. HAILE CATHETER DRAINING AT GRAVITY LEVEL WITH CLEAR YELLOW URINE. PT. C/O ABD PAIN AND SCHED TORADOL GIVEN; WILL REASSESS. SHANNAN EMPTIED OF 50MLS OF BLOODY DRAINAGE. ENCOURAGED TO CALL FOR ANY NEEDS. CALL LIGHT IS IN REACH.
--- NOTE | 2020-03-06 02:20 | NUR ---
[id number]- PT. UP TO BSC AND REPORTS NEEDED TO HAVE A BM; PT. PASSED SOME FLATUS AND PALM SIZE RED MUCOUS LIKE STOOL NOTED IN BSC ASSISTED BACK TO BED AND BRIEF APPLIED PER PT'S REQUEST; NO BLEEDING FROM RECTUM NOTED. SURGICAL DRESSING REMAINS INTACT AND DRAINAGE REMAINS MARKED THE SAME TO DRESSING; WILL CONTINUE TO MONITOR FOR BLEEDING. PT. C/O ABD PAIN AND IS ANXIOUS; MEDICATED WITH ORDERED PRN DILAUDID AND XANAX; WILL REASSESS. PT. WITH MOIST COUGH AND ENCOURAGED TO COUGH AND SPLINT WHILE COUGHING WELL USE I/S. ENCOURAGED TO CALL FOR ANY NEEDS. CALL LIGHT IS IN REACH.
[2020-03-06 03:55] VITALS: BP 113/60
--- NOTE | 2020-03-06 04:36 | NUR ---
PT. C/O ABD PAIN 05/18; MEDICATED WITH ORDERED PRN DILAUDID; WILL REASSESS. SHANNAN EMPTIED OF 60MLS OF BLOODY DRAINAGE. DRESSING REMAINS INTACT WITH NO CHANGE. FOELY CATHETER EMPTIED OF 300MLS OF CLEAR YELLOW URINE.
[2020-03-06 05:59] LABS: HEMATOCRIT 38.8 % (37.0-47.0); IMMATURE GRANULOCYTES 0.5 % (0.0-5.0); MEAN CORPUSCULAR HGB 28.8 pG CALC (26.0-32.0); MEAN CORPUSCULAR HGB CONC 30.9 g/dL CAL (32.0-36.0); NEUT# 16.76 thou/uL (2.00-7.15); RED BLOOD COUNT 4.17 mill/uL (4.20-5.60)
[2020-03-06 06:16] LABS: CREATININE 1.8 mg/dL (0.5-1.0); POTASSIUM 4.9 mmol/l (3.5-5.1)
--- NOTE | 2020-03-06 06:30 | NUR ---
D/C'D HAILE CATHETER PER ORDER. DRESSING CHECKED AND REMAINS THE SAME MARKED PREVIOUS. SHANNAN INTACT. RECTUM CHECKED FOR BLEEDING AND NONE NOTED. PT. ASSISTED INTO CHAIR. ENCOURAGED TO USE CALL LIGHT; INSTRUCTED TO CALL FOR ANY NEEDS AND NOT TO GET UP ON HER OWN. RE-EDUCATED ON NEED TO SPLINT ABDOMEN WHEN COUGHING.
[2020-03-06 08:10] VITALS: BP 104/60
[2020-03-06 12:00] VITALS: BP 132/59
[2020-03-06 17:51] VITALS: BP 118/50
[2020-03-06 19:23] VITALS: BP 90/49
[2020-03-06 21:25] VITALS: BP 125/53
--- NOTE | 2020-03-06 21:25 | NUR ---
- PT. SITTING UP IN BED AND ENCOURAGED TO DEEP BREATH, PT. WITH WET GARGLES IN THROAT AND NEEDS TO COUGH ; PT. RE-EDCAUTED ON NEEDING TO COUGH INTERMITTENTLY AND VERBALIZES UNDERSTANDING. PT. ASSISTED TO AMBULATE DOWN THE 60'S BROOKE AND BACK TO ROOM; PT. ONLY ABLE TO TOLERATE THIS MUCH AMBULATING AT THIS TIME. PT. THEN ASSISTED ON AND OFF OF BSC; PT. HAD A GREEN LIQUID STOOL AND URINATED MIXED IN WITH STOOL. PT. MEDICATED WITH ORDERED PRN DIALUDID AND THEN DRESSING CHANGED TO ABDOMEN PER ORDER; PHOTO OBTAINED AND AND PLACED IN CHART. ABDOMINAL BINDER REPLACED AND SHANNAN DRAIN INACT AND EMPTIED OF 100MLS OF BLOODY/RED DRAINAGE. SCD'S TO BLE. ENCOURAGED USE OF I/S. ICE CHIPS PROVIDED. RECEHECKED B/P 125/53 WITH HR 91. PT. DENIES WANTING TO TAKE SCHED TOPROL; HELD AT THIS TIME.
--- NOTE | 2020-03-07 00:12 | NUR ---
PT. C/O ABD PAIN AND ANXIETY; MEDICATED WITH ORDERED PRN DILAUDID AND XANAX. PT. ASSISTED TO BSC AND THEN BECAME NAUSEOUS, MEDICATED WITH ORDERED PRN ZOFRAN; WILL REASSESS. ASSISTED BACK INTO BED. CALL LIGHT IS IN REACH.
--- NOTE | 2020-03-07 02:52 | NUR ---
PT. WITH TEMP OF 101.1, NO ORDERS IN PLACE FOR MEDICATING. CALLED AND NOTIFIED MD FLOORING MACHINE FEEDER. NEW ORDERS RECEIVED AND TO BE CARRIED OUT.
[2020-03-07 03:40] LABS: HEMATOCRIT 35.2 % (37.0-47.0); HEMOGLOBIN 10.9 g/dl (12.0-16.0); MEAN CELL VOLUME 92.6 fL CALC (80.0-100.0); MEAN CORPUSCULAR HGB 28.7 pG CALC (26.0-32.0); RED BLOOD COUNT 3.8 mill/uL (4.20-5.60)
[2020-03-07 04:03] LABS: CREATININE 1.5 mg/dL (0.5-1.0); MAGNESIUM 1.2 mg/dL (1.6-2.3); POTASSIUM 4.3 mmol/l (3.5-5.1)
[2020-03-07 04:15] VITALS: BP 108/58
--- NOTE | 2020-03-07 04:24 | NUR ---
SHANNAN EMPTIED OF 60MLS OF BLOODY DRAINAGE; PT. DENIES NEEDS. ICE CHIPS PROVIDED.
--- NOTE | 2020-03-07 05:59 | NUR ---
PT. MEDICATED WITH ORDERED PRN DILAUDID AND ZOFRAN; WILL REASSESS;
--- NOTE | 2020-03-07 06:05 | NUR ---
PT. ASSISTED ONTO BSC TO VOID. MEDICATED WITH ORDERED PRN DILAUDID AND ZOFRAN FOR ABD PAIN AND NAUSEA; WILL REASSESS.
--- NOTE | 2020-03-07 06:30 | NUR ---
NEW IV STARTED TO RFA X1 ATTEMPT. PT. REPORTS IV TO RFA IS HURTING AND REMOVED, CATHETER TIP INTACT. PT. CONTINUES TO REPORT PRICKLY FEELING TO FINGERS, ENCOURAGED TO ELEVATE ARMS AND HANDS WHILE IN BED.
--- NOTE | 2020-03-07 07:20 | NUR ---
REPORT RECEIVED FROM BONNY AGARWAL.
[2020-03-07 09:37] VITALS: BP 114/65
--- NOTE | 2020-03-07 09:40 | NUR ---
PT RESTING IN SEMI FOWLERS POSITION,A&O X3;VS OBTAINED AND ASSESSMENT COMPLETED;PT IS POD #2 COLOSTOMY REVERSAL;PT REPORTS ABDOMINAL PAIN RATING 9/10 ON THE PAIN SCALE AND REQUESTS PAIN MEDICATION, PT TO BE MEDICATED WITH PRN DILAUDID 1MG IVP PER ORDER;RESPIRATIONS EVEN AND UNLABORED ON RA;ABDOMEN DISTENDED/SOFT WITH DRY DRESSING AND ABDOMINAL BINDER IN PLACE, ACTIVE BOWEL SOUNDS;STRONG PEDAL PULSES;SKIN INTACT;#22G TO RFA INFUSING NS @ 150ML/HR,SITE APPEARS HEALTHY;NPO DIET REINFORCED AND PT VERBALIZES UNDERSTANDING;PT DENIES ANY ADDITIONAL NEEDS AT THIS TIME AND IS ENCOURAGED TO CALL FOR ASSISTANCE IF NEEDED;FALL PRECAUTIONS IN PLACE WITH BED IN THE LOWEST POSITION AND CALL LIGHT IN REACH;WILL CONTINUE TO MONITOR
--- NOTE | 2020-03-07 12:15 | NUR ---
PT RESTING IN SEMI FOWLERS POSITION;RESPIRATIONS EVEN AND UNLABORED OR RA;PT REPORTS ABDOMINAL PAIN RATING 9/10 ON THE PAIN SCALE AND REQUESTS PAIN MEDICATION, PT TO BE MEDICATED WITH PRN DILAUDID 1MG IVP AND ZOFRAN 4MG IVP PER ORDER;IV FLUIDS INFUSING WITH EASE PER ORDER;PT ALSO REQUESTS PRN XANAX, ALSO ADMINISTERED AT THIS TIME;PT DENIES ANY ADDITIONAL NEEDS AND IS ENCOURAGED TO CALL FOR ASSISTANCE IF NEEDED;CALL LIGHT IN REACH;WILL CONTINUE TO MONITOR
--- NOTE | 2020-03-07 12:45 | NUR ---
ABDOMINAL DRESSING CHANGED PROVIDED AT THIS TIME,PT TOLERATED WELL;WILL CONTINUE TO MONITOR
--- NOTE | 2020-03-07 12:47 | NUR ---
AT BEDSIDE AT THIS TIME.
[2020-03-07 15:55] VITALS: BP 100/58
--- NOTE | 2020-03-07 16:45 | NUR ---
PT RESTING IN SEMI FOWLERS POSITION WITH SPOUSE AT BEDSIDE;RESPIRATIONS EVEN AND UNLABORED ON RA;PT REPORTS ABDOMINAL PAIN RATING 9/10 ON THE PAIN SCALE AND REQUESTS PAIN MEDICATION, PT TO BE MEDICATED WITH PRN DILAUDID 1MG IVP AT THIS TIME;IV FLUIDS INFUSING WITH EASE;ABDOMINAL BINDER AND SHANNAN DRAIN REMAIN PATENT;FRESH WATER AND JUICE PROVIDED PER REQUEST;PT DENIES ANY ADDITIONAL NEEDS AND IS ENCOURAGED TO CALL FOR ASSISTANCE IF NEEDED;CALL LIGHT IN REACH;WILL CONTINUE TO MONITOR
[2020-03-07 19:27] VITALS: BP 111/63
--- NOTE | 2020-03-07 20:50 | NUR ---
PT SITTING ON BEDSIDE COMMODE, ON STANDBY PT RETURNS TO BED INDEPENDENTLY. ASSISTED PT TO WIPE PER HER REQUEST. EMPTIED COMMODE OF LARGE AMOUNT DARK GREEN LIQUID/MUCOUS STOOL MIXED WITH URINE. PHYSICAL ASSESMENT COMPLETE. DRESSING TO ABD C/D/I W/ ABD BINDER SECURED OVERTOP. SHANNAN DRAIN SECURED WITH TUBING UNKINKED AND UNOBSTRUCTED, BULB SUCTION ENGAGED, OUTPUT SANGUINOUS. SCHEDULED MED ADMINISTERED, PRN XANAX AND DILAUDID ADMINISTERED PER PTs REQUEST FOR C/O ANXIETY AND ABD PAIN 04/18. SEE E-MAR. PLAN OF CARE REVIEWED W/ EMPHASIS ON EARLY AND FREQUENT AMBULATION AND PULMONARY HYGIENE. PT VERBALIZES UNDERSTANDING AND DENIES QUESTIONS. ICE AND GATORADE PROVIDED PER PTS REQUEST. DENIES FURTHER NEEDS @ THIS TIME. CALL [place] WITHIN REACH, AGREES TO CALL PRN. PERSONAL ITEMS WITHIN REACH. BED LOCKED IN LOW POSITION W/ BEDRAILS UP X2.
--- NOTE | 2020-03-08 00:05 | NUR ---
PT APPEARS TO BE SLEEPING COMFORTABLY, NO APPARENT DISTRESS. RESPIRATIONS REGULAR AND UNLABORED. PERSONAL ITEMS REMAIN WITHIN REACH. BED REMAINS LOCKED IN LOW POSITION WITH BEDRAILS UP X2. CALL BERK[place]Z REMAINS WITHIN REACH.
--- NOTE | 2020-03-08 02:02 | NUR ---
PT MEDICATED FOR C/O ABD PAIN 04/18, SEE E-MAR. PT STATES BACK IS VERY ITCHY. ON EXAM BACK IS REDDENED PREVIOUSLY NOTED, MD AWARE. SKIN INTACT, NO BLISTERING OR HIVES. BACK RUB GIVEN FOR COMFORT. ADVISED PT PRURITIS MAY BE AT LEAST PARTLY ATTRIBUTED TO OPIOIDS SHE IS RECEIVING. ADVISED PT NOT TO SCRATCH BUT APPLY FIRM PRESSURE OR PAT SKIN TO MAINTAIN SKIN INTEGRITY. PT VERBALIZES UNDERSTAMDING AND AGREES.
[2020-03-08 04:36] VITALS: BP 115/71
--- NOTE | 2020-03-08 05:02 | NUR ---
10ML SEROUSANGUINOUS DRAINAGE EMPTIED FROM SHANNAN DRAIN. BULB SUCTION RE-ENGAGED. ON STANDBY WHILE PT UP TO BSC INDEPENDENTLY AND BACK TO BED. ASSISTED PT TO WIPE PER HER REQUEST. PT PASSED LARGE GREEN LIQUID/MUCOUS STOOL. CONTINUES TO REPORT PRURITIS, PTS BACK WIPED WITH COOL MOIST WASH CLOTH AND LOTION APPLIED/ BACK RUB PROVIDED FOR COMFORT. PRN BENADRYL ADMINISTERED FOR PRURITUS AND PRN DILAUDID ADMINISTERED FOR C/O OF ABD PAIN, 04/18. SEE E-MAR.
--- NOTE | 2020-03-08 05:30 | NUR ---
TECH IN ROOM FOR PCXR.
[2020-03-08 05:53] LABS: HEMATOCRIT 29.9 % (37.0-47.0); HEMOGLOBIN 9.1 g/dl (12.0-16.0); MEAN CORPUSCULAR HGB 28.6 pG CALC (26.0-32.0); MEAN CORPUSCULAR HGB CONC 30.4 g/dL CAL (32.0-36.0); RED BLOOD COUNT 3.18 mill/uL (4.20-5.60)
[2020-03-08 06:10] LABS: CREATININE 1.3 mg/dL (0.5-1.0)
[2020-03-08 08:40] VITALS: BP 113/41
--- NOTE | 2020-03-08 08:40 | NUR ---
ASSESSMENT IS COMPLETED: IV SITE IS FREE FROM REDNESS OR EDEMA. HR IS REG,PULSES ARE STRONG X4, ABD IS SOFT WITH ACTIVE BS. BREATH SOUNDS ARE CLEAR BILATERALLY, NO C/O SOB.DRESSING ON ABD IS CDI. WITH ABD BINDER IN PLACE. CONTINUE TO OSEBRVE AND MONITOR.
--- NOTE | 2020-03-08 12:15 | NUR ---
PT HAS BEEN IN THE CHAIR, AND ENCOURAGED TO WALK. NO DISTRESS NOTED. IV SITE IS FREE FROM REDNESS OR EDEMA. CONTINUE TO OSBERVE AND MONITOR.
--- NOTE | 2020-03-08 13:10 | NUR ---
REMOVED SHANNAN DRAIN HAD 10CC OF SERO DRAINAGE NOTED, PT TOLERATED WELL. NO BLEEDING NOTED. CONTINUE TO OBSERVE AND MONITOR.
[2020-03-08 15:00] VITALS: BP 145/64
--- NOTE | 2020-03-08 16:15 | NUR ---
PT IS RELAXING IN BED WITH NO DISTRESS NOTED. IV SITE IS FREE FROM REDNESS OR EDEMA. CONTINUE TO OBSERVE AND MONITOR.
[2020-03-08 19:00] VITALS: BP 143/77
--- NOTE | 2020-03-08 21:20 | NUR ---
PT UP AT SINK TO BRUSH TEETH. AMBULATORY BACK TO BED. GAIT STEADY AND BALANCED. PHYSICAL ASSESMENT COMPLETE. SCHEDULED MED ADMINISTERED, PRN XANAX ADMINISTERED PER PTS REQUEST FOR C/O ANXIETY. PT DENIES ANY FURTHER NEEDS AT THIS TIME. PLAN OF CARE REVIEWED. PT DENIES QUESTIONS, VERBALIZES UNDERSTANDING. PERSONAL ITEMS WITHIN REACH. BED LOCKED IN LOW POSITION W/ BEDRAILS UP X2. CALL [place] WITHIN REACH, AGREES TO CALL PRN.
--- NOTE | 2020-03-09 00:03 | NUR ---
MEDICATED FOR C/O CRAMPING ABD PAIN 04/18 WITH PRN PERCOCET PER PTS REQUEST. SEE E-MAR. PT DENIES FURTHER NEEDS AT THIS TIME. PERSONAL ITEMS REMAIN WITHIN REACH. BED REMAINS LOCKED IN LOW POSITION W/ BEDRAILS UP X2. CALL [place] REMAINS WITHIN REACH. AGREES TO CALL PRN.
[2020-03-09 03:55] VITALS: BP 119/69
--- NOTE | 2020-03-09 05:18 | NUR ---
PT APPEARS TO BE SLEEPING COMFORTABLY. RESPIRATIONS REGULAR AND UNLABORED. PERSONAL ITEMS REMAIN WITHIN REACH. BED REMAINS LOCKED IN LOW POSITION W/ BEDRAILS UP X2 AND BED ALARM ON. CALL BERK[place]Z REMAINS WITHIN REACH.
[2020-03-09 08:25] VITALS: BP 156/63
--- NOTE | 2020-03-09 08:25 | NUR ---
ASSESSMENT IS COMPLETED: IV SITE IS FREE FROM REDNESS OR EDEMA. HR IS REG,PULSES ARE STRONG X4, ABD IS SOFT WITH ACTIVE BS. BREATH SOUNDS ARE CLEAR,BILATERALLY. NO C/O SOB, DRESSING ON ABD IS CDI. BINDER IN PLACE. CONTINUE TO OBSERVE AND MONITOR.
[2020-03-09 08:49] VITALS: BP 156/63
[2020-03-09] MEDS ORDERED: PERCOCET 5/325M1 TAB PO (09:54)
[2020-03-09] MEDS ORDERED: XANAX0.25 MG PO (09:54)
[2020-03-09] MEDS ORDERED: MEDDOSEPAK PO (09:55)
--- NOTE | 2020-03-09 11:30 | NUR ---
JARROD ARE INTACT. SOME DRAINAGE NOTED ON THE PAD. SHANNAN SITE IS CLOSED. PT IS HAVING FORMED BM.
--- NOTE | 2020-03-09 12:00 | NUR ---
PT HAS BEEN AMBULATING IN THE ROOM. IV SITE IS FREE FROM REDNESS OR EDEMA. CONTINUE TO OBSERVE AND MONITOR.
--- NOTE | 2020-03-09 12:35 | NUR ---
DISCHARGE INSTRUCTIONS GIVEN AND VERBALIZED UNDERSTANDING.IV SITE DISCONTINUED CATHETER INTACT. NO REDNESS OR EDEMA. DRESSING CHANGED ON ABD WITH SOME PACKING. FAMILY MEMBER IN THE ROOM. ABD BINDER IN PLACE.
== END 2020-03-09 12:45 | disposition home or self-care (01) | DRG 345 ==
LOC: ORM 07:08 → MS2 12:30 → ORM 14:00 → MS2 03-09 12:45
PROVIDERS: Nurse Practitioner; ADMIT Surgery; ATTEND Surgery
PROC: 0DSM0ZZ Reposition Descending Colon, Open Approach (ICD-10-PCS; principal; 2020-03-05)
DX: Z43.3 Encounter for attention to colostomy (principal); N17.9 Acute kidney failure, unspecified; E87.1 Hypo-osmolality and hyponatremia; I10 Essential (primary) hypertension; K57.30 Diverticulosis of large intestine without perforation or abscess without bleeding; F17.200 Nicotine dependence, unspecified, uncomplicated; E83.51 Hypocalcemia; E83.42 Hypomagnesemia; Z11.59 Encounter for screening for other viral diseases
CPT/HCPCS: J0131; J1100; J3475

== ENCOUNTER 2021-05-29 12:57 | Inpatient (IN) | payer SELFPAY ==
[~2021-05-29] VITALS: Ht 162.6 cm; Wt 91.0 kg
[~2021-05-29 12:57] MED LIST changes: +MEDDOSEPAK PO
[2021-05-29] MEDS ORDERED: ESCITALOPRAM OX10 MG PO (13:19)
[2021-05-29] MEDS ORDERED: DICYCLOMINE10 MG PO (13:20)
[2021-05-29] MEDS ORDERED: NORVASC5 M1 PO (13:20)
[2021-05-29] MEDS ORDERED: TRAMADOL HYDROC50 M1 PO (13:21)
[2021-05-29] MEDS ORDERED: LOPRESSOR 550 MG/TAB PO (13:23)
[2021-05-29] MEDS ORDERED: MAXZIDE-2537.5 MG/TA PO (13:23)
[2021-05-29 14:22] LABS: URINE BILIRUBIN - DIPSTICK NEGATIVE (NEGATIVE); URINE BLOOD DIPSTICK NEGATIVE (NEGATIVE); URINE COLOR YELLOW; URINE GLUCOSE - DIPSTICK NEGATIVE (NEGATIVE); URINE KETONE NEGATIVE (NEGATIVE); URINE LEUK ESTERASE NEGATIVE (NEGATIVE); URINE PH 6.5 (4.5-8.0); URINE PROTEIN - DIPSTICK NEGATIVE (NEG-TRACE); URINE UROBILINOGEN - DIPSTICK 0.2 E.U./dL (0.2)
[2021-05-29 14:25] LABS: URINE NITRITE - DIPSTICK NEGATIVE (Negative)
[2021-05-29 14:32] LABS: IMMATURE GRANULOCYTES 0.7 % (0.0-5.0); MEAN CORPUSCULAR HGB CONC 31.1 g/dL CAL (32.0-36.0); NEUT# 13.94 thou/uL (2.00-7.15); RED BLOOD COUNT 4.68 mill/uL (4.20-5.60); RED CELL DISTRI WIDTH 13.5 % (11.5-15.5)
[2021-05-29 14:35] LABS: HEMATOCRIT 42.1 % (37.0-47.0); HEMOGLOBIN 13.1 g/dl (12.0-16.0)
[2021-05-29 14:47] LABS: ALBUMIN 4.2 g/dL (3.2-5.0); ALKALINE PHOSPHATASE 126 u/l (38-126); AMYLASE 76 u/l (30-110); ANION GAP 14 (6-22 (CALC)); BUN 28 mg/dL (7-17); BUN/CREATININE RATIO 23 (12-20 (CALC)); CARBON DIOXIDE 24 mmol/l (22-30); CHLORIDE 97 mmol/l (95-108); CREATININE 1.2 mg/dL (0.5-1.0); GFR 46 ML/MIN (>=60 (CALC)); GFR FOR AFR.AMER. 56 ML/MIN (>=60 (CALC)); LIPASE 181 u/l (23-300); POTASSIUM 4.7 mmol/l (3.5-5.1); SGOT/AST 20 u/l (14-36); SODIUM 131 mmol/l (137-146)
[2021-05-29 14:48] LABS: BILIRUBIN, TOTAL 0.4 mg/dL (0.0-1.4)
[2021-05-29 14:51] LABS: ACT PARTIAL THROMBO TIME 25.6 SECONDS (20.0-32.5); INTERNATIONAL NORMALIZED RATIO 0.9 RATIO (0.7-1.3); PROTHROMBIN TIME 9.6 SECONDS (9.0-12.5)
[2021-05-29 19:21] VITALS: BP 141/59
[2021-05-30 04:00] VITALS: BP 89/36
[2021-05-30 05:08] LABS: HEMATOCRIT 42.3 % (37.0-47.0); MEAN CELL VOLUME 90.4 fL CALC (80.0-100.0); MEAN CORPUSCULAR HGB 27.8 pG CALC (26.0-32.0); MEAN CORPUSCULAR HGB CONC 30.7 g/dL CAL (32.0-36.0); RED BLOOD COUNT 4.68 mill/uL (4.20-5.60); RED CELL DISTRI WIDTH 13.7 % (11.5-15.5)
[2021-05-30 05:22] LABS: CREATININE 1.8 mg/dL (0.5-1.0)
[2021-05-30 05:42] LABS: MAGNESIUM 1.3 mg/dL (1.6-2.3); POTASSIUM 5.9 mmol/l (3.5-5.1)
[2021-05-30 05:46] VITALS: BP 92/42
[2021-05-30 15:10] VITALS: BP 87/45
[2021-05-30 19:00] VITALS: BP 151/66
[2021-05-31] VITALS: BP 114/67
[2021-05-31 04:00] VITALS: BP 118/53
[2021-05-31 05:59] LABS: IMMATURE GRANULOCYTES 0.3 % (0.0-5.0); MEAN CELL VOLUME 90.7 fL CALC (80.0-100.0); MEAN CORPUSCULAR HGB 27.9 pG CALC (26.0-32.0); MEAN CORPUSCULAR HGB CONC 30.7 g/dL CAL (32.0-36.0); NEUT# 20.64 thou/uL (2.00-7.15); RED BLOOD COUNT 3.77 mill/uL (4.20-5.60)
[2021-05-31 06:00] LABS: HEMATOCRIT 34.2 % (37.0-47.0); HEMOGLOBIN 10.5 g/dl (12.0-16.0)
[2021-05-31 06:22] LABS: CREATININE 1.8 mg/dL (0.5-1.0)
[2021-05-31 06:27] LABS: MAGNESIUM 2.6 mg/dL (1.6-2.3); POTASSIUM 4.7 mmol/l (3.5-5.1)
[2021-05-31 07:10] VITALS: BP 118/60
[2021-05-31 12:44] VITALS: BP 114/76
[2021-05-31 16:30] VITALS: BP 116/76; BP 118/72
[2021-05-31 19:00] VITALS: BP 116/57
[2021-06-01] VITALS: BP 146/60
[2021-06-01 04:00] VITALS: BP 127/65
[2021-06-01 04:49] LABS: HEMATOCRIT 35.5 % (37.0-47.0); HEMOGLOBIN 11.1 g/dl (12.0-16.0); IMMATURE GRANULOCYTES 0.7 % (0.0-5.0); MEAN CELL VOLUME 88.8 fL CALC (80.0-100.0); MEAN CORPUSCULAR HGB 27.8 pG CALC (26.0-32.0); MEAN CORPUSCULAR HGB CONC 31.3 g/dL CAL (32.0-36.0); NEUT# 14.93 thou/uL (2.00-7.15)
[2021-06-01 05:08] LABS: CREATININE 1.5 mg/dL (0.5-1.0); MAGNESIUM 2.2 mg/dL (1.6-2.3); POTASSIUM 4.7 mmol/l (3.5-5.1)
[2021-06-01 07:21] VITALS: BP 121/55
[2021-06-01] MEDS ORDERED: MEDDOSEPAK PO (09:38)
[2021-06-01] MEDS ORDERED: Levaquin PO (09:38)
[2021-06-01 10:57] VITALS: BP 131/61
== END 2021-06-01 12:23 | disposition home or self-care (01) | DRG 872 ==
LOC: ED 12:57 → ED-I 17:00 → ED 17:18 → MS2 17:19
PROVIDERS: Nurse Practitioner; ADMIT Internal Medicine; ATTEND Internal Medicine
PROC: 02HV33Z Insertion of Infusion Device into Superior Vena Cava, Percutaneous Approach (ICD-10-PCS; principal; 2021-05-30)
PROC: B518ZZA Fluoroscopy of Superior Vena Cava, Guidance (ICD-10-PCS; 2021-05-30)
DX: A41.9 Sepsis, unspecified organism (principal); N17.9 Acute kidney failure, unspecified; R65.20 Severe sepsis without septic shock; I95.9 Hypotension, unspecified; R10.12 Left upper quadrant pain; L27.1 Localized skin eruption due to drugs and medicaments taken internally; T36.0X5A Adverse effect of penicillins, initial encounter; T40.2X5A Adverse effect of other opioids, initial encounter; I12.9 Hypertensive chronic kidney disease with stage 1 through stage 4 chronic kidney disease, or unspecified chronic kidney disease; N18.9 Chronic kidney disease, unspecified; K43.2 Incisional hernia without obstruction or gangrene; F17.200 Nicotine dependence, unspecified, uncomplicated; Z20.822 Contact with and (suspected) exposure to COVID-19
CPT/HCPCS: J3475; Q9967